=== PATIENT | female | born 1940 | race Caucasian/White ===

== ENCOUNTER 2016-11-28 09:32 | Inpatient (IN) | payer MEDICARE ==
[2016-11-28] MEDS ORDERED: IPRATROPIUM/ALBUTEROL 0.5-2.5 MG/3 ML AMPUL NEB ONE ×3 (09:53→09:54)
[2016-11-28] MEDS ORDERED: METHYLPREDNISOLONE INJ 125 MG/2 ML SDV IV ONE (09:53)
--- NOTE | 2016-11-28 09:55 | ER Document Report ---
ED Medical Screen (RME) - General Chief Complaint: Breathing Difficulty Stated Complaint: DIFFICULTY BREATHING Time Seen by Provider: 11/28/16 09:46 Mode of Arrival: Wheelchair Information source: Patient Notes: I have greeted and performed a rapid initial assessment of this patient. A comprehensive ED assessment and evaluation of the patient, analysis of test results and completion of the medical decision making process will be conducted by additional ED providers. 68-year-old female history of multiple PEs after a fall 5 months ago on Coumadin presents with complaints of shortness of breath. Patient found satting 89%, was placed on nasal cannula. She is not on oxygen at home. PHYSICAL EXAMINATION: GENERAL: Well-appearing, well-nourished and in mild respiratory acute distress. HEAD: Atraumatic, normocephalic. EYES: Pupils equal round extraocular movements intact, conjunctiva are normal. ENT: Nares patent NECK: Normal range of motion LUNGS: Mild respiratory distress Musculoskeletal: Normal range of motion NEUROLOGICAL: Normal speech, normal gait. PSYCH: Normal mood, normal affect. SKIN: Warm, Dry, normal turgor, no rashes or lesions noted. TRAVEL OUTSIDE OF THE [place] IN LAST 30 DAYS: No - Related Data Allergies/Adverse Reactions: No Known Allergies Allergy (Verified 11/28/16 09:43) Past Medical History - Past Medical History Cardiac Medical History: Reports: Hx Congestive Heart Failure, Hx Hypercholesterolemia, Hx Hypertension Pulmonary Medical History: Denies: Hx Tuberculosis Endocrine Medical History: Reports: Hx Diabetes Mellitus Type 2 Renal/ Medical History: Denies: Hx Peritoneal Dialysis GI Medical History: Reports: Hx Gastroesophageal Reflux Disease Musculoskeltal Medical History: Reports Hx Arthritis Psychiatric Medical History: Reports: Hx Depression Past Surgical History: Reports: Hx Cholecystectomy Physical Exam - Vital signs Vitals: Temp Pulse Resp BP Pulse Ox 98.6 F 66 24 H 173/69 H 89 L 11/28/16 09:47 11/28/16 09:47 11/28/16 09:47 11/28/16 09:47 11/28/16 09:47 Course - Vital Signs Vital signs: Temp Pulse Resp BP Pulse Ox 98.6 F 66 24 H 173/69 H 89 L 11/28/16 09:47 11/28/16 09:47 11/28/16 09:47 11/28/16 09:47 11/28/16 09:47
[2016-11-28 10:42] LABS: ABSOLUTE LYMPHOCYTES (AUTO) 1.3 10^3/uL (0.5-4.7); ABSOLUTE MONOCYTES (AUTO) 0.6 10^3/uL (0.1-1.4); ABSOLUTE NEUT (AUTO) 6.1 10^3/uL (1.7-8.2); BASOPHILS % (AUTO) 0.4 % (0-2); EOSINOPHILS % (AUTO) 0.6 % (0-6); HEMATOCRIT 39.9 % (36.0-47.0); HEMOGLOBIN 13.5 g/dL (12.0-15.5); HGB HCT DIFFERENCE 0.6; LYMPHOCYTES % (AUTO) 16.1 % (13-45); MEAN CORPUSCULAR HEMOGLOBIN 30.2 pg (27.0-33.4); MEAN CORPUSCULAR HGB CONC 33.9 g/dL (32.0-36.0); MEAN CORPUSCULAR VOLUME 89 fl (80-97); MONOCYTES % (AUTO) 6.9 % (3-13); RED BLOOD COUNT 4.47 10^6/uL (3.72-5.28); RED CELL DISTRIBUTION WIDTH 14.4 % (11.5-14.0)
[2016-11-28 10:50] LABS: PARTIAL THROMBOPLASTIN TIME 33.1 SEC (23.5-35.8)
[2016-11-28 11:04] LABS: ALANINE AMINOTRANSFERASE 42 U/L (9-52); ALKALINE PHOSPHATASE 56 U/L (38-126); ANION GAP 11 (5-19); ASPARTATE AMINO TRANSFERASE 32 U/L (14-36); BILIRUBIN,DIRECT 0.1 mg/dL (0.0-0.4); BILIRUBIN,TOTAL 1.2 mg/dL (0.2-1.3); BLOOD UREA NITROGEN 11 mg/dL (7-20); CALCIUM 10.7 mg/dL (8.4-10.2); CARBON DIOXIDE 26 mmol/L (22-30); CHLORIDE 104 mmol/L (98-107); CREATINE KINASE 52 U/L (30-135); CREATININE RESULT 0.77 mg/dL (0.52-1.25); GLUCOSE 101 mg/dL (75-110); MAGNESIUM 1.9 mg/dL (1.6-2.3); POTASSIUM 4.4 mmol/L (3.6-5.0); SODIUM 140.6 mmol/L (137-145); TOTAL PROTEIN 6.5 g/dL (6.3-8.2)
[2016-11-28 11:14] LABS: CREATINE KINASE MB 0.97 ng/mL (<4.55)
[2016-11-28 11:16] LABS: TROPONIN I < 0.012 ng/mL
[2016-11-28] MEDS ORDERED: CEFTRIAXONE 1 GM/D5W RTU 50 ML IV ONE (12:31)
[2016-11-28] MEDS ORDERED: AZITHROMYCIN INJ 500 MG VIAL IV ONE (12:51)
--- NOTE | 2016-11-28 12:51 | ER Document Report ---
ED General - General Chief Complaint: Breathing Difficulty Stated Complaint: DIFFICULTY BREATHING Time Seen by Provider: 11/28/16 09:46 Mode of Arrival: Wheelchair TRAVEL OUTSIDE OF THE [place] IN LAST 30 DAYS: No - HPI Patient complains to provider of: difficulty in breathing Notes: Patient coming in for difficulty in breathing. Patient has a history of multiple PEs in the past patient states cough and last few days nonproductive no fevers or chills no nausea no vomiting. Patient states a history of COPD however she is on bronchodilators and used to smoke patient states does not smoke at this time. Patient was seen in triage found to be hypoxic with SPO2 less than 90. Patient was brought back to the main ER given multiple breathing treatments. Upon my evaluation patient was to be comfortable and is on oxygen at this time 4 L. Patient does not have oxygen at home - Related Data Allergies/Adverse Reactions: No Known Allergies Allergy (Verified 11/28/16 09:43) Home Medications: Current Home Medications Bisoprolol Fumarate [Zebeta] 10 mg PO DAILY 11/28/16 [History] Sertraline HCl [Zoloft 50 mg Tablet] 50 mg PO DAILY 11/28/16 [History] Warfarin Sodium [Coumadin 1 mg Tablet] 1 mg PO QHS 11/28/16 [History] Warfarin Sodium [Coumadin 5 mg Tablet] 5 mg PO QHS 11/28/16 [History] Past Medical History - General Information source: Patient - Social History Smoking Status: Former Smoker Chew tobacco use (# tins/day): No Frequency of alcohol use: None Drug Abuse: None Family History: CAD, DM Patient has suicidal ideation: No Patient has homicidal ideation: No - Past Medical History Cardiac Medical History: Reports: Hx Congestive Heart Failure, Hx Hypercholesterolemia, Hx Hypertension Pulmonary Medical History: Denies: Hx Tuberculosis Endocrine Medical History: Reports: Hx Diabetes Mellitus Type 2 Renal/ Medical History: Denies: Hx Peritoneal Dialysis GI Medical History: Reports: Hx Gastroesophageal Reflux Disease Musculoskeltal Medical History: Reports Hx Arthritis Psychiatric Medical History: Reports: Hx Depression Past Surgical History: Reports: Hx Appendectomy, Hx Cholecystectomy, Hx Tonsillectomy - Immunizations Hx Pneumococcal Vaccination: 07/19/12 Review of Systems - Review of Systems Constitutional: No symptoms reported EENT: No symptoms reported Cardiovascular: No symptoms reported Respiratory: Short of breath, Wheezing Gastrointestinal: No symptoms reported Genitourinary: No symptoms reported Female Genitourinary: No symptoms reported Musculoskeletal: No symptoms reported Skin: No symptoms reported Hematologic/Lymphatic: No symptoms reported Neurological/Psychological: No symptoms reported -: Yes All other systems reviewed and negative Physical Exam - Vital signs Vitals: Temp Pulse Resp BP Pulse Ox 98.6 F 66 24 H 173/69 H 89 L 11/28/16 09:47 11/28/16 09:47 11/28/16 09:47 11/28/16 09:47 11/28/16 09:47 Interpretation: Hypoxic - General General appearance: Appears well, Alert - HEENT Head: Normocephalic, Atraumatic Eyes: Normal Pupils: PERRL - Respiratory Respiratory status: No respiratory distress Chest status: Nontender Breath sounds: Normal Chest palpation: Normal - Cardiovascular Rhythm: Regular Heart sounds: Normal auscultation Murmur: No - Abdominal Inspection: Normal Distension: No distension Bowel sounds: Normal Tenderness: Nontender Organomegaly: No organomegaly - Back Back: Normal, Nontender - Extremities General upper extremity: Normal inspection, Nontender, Normal color, Normal ROM , Normal temperature General lower extremity: Normal inspection, Nontender, Normal color, Normal ROM , Normal temperature, Normal weight bearing. No: Del's sign - Neurological Neuro grossly intact: Yes Cognition: Normal Orientation: AAOx4 Nathalie Coma Scale Eye Opening: Spontaneous Nathalie Coma Scale Verbal: Oriented Sherrill Coma Scale Motor: Obeys Commands Nathalie Coma Scale Total: 15 Speech: Normal Motor strength normal: LUE, RUE, LLE, RLE Sensory: Normal - Psychological Associated symptoms: Normal affect, Normal mood - Skin Skin Temperature: Warm Skin Moisture: Dry Skin Color: Normal Course - Re-evaluation Re-evalutation: 11/28/16 15:08 Patient CTA does not show any signs of PE however does shows signs of groundglass possible pneumonia. Patient still requires oxygen while lying in the bed with room air patient's SPO2 did go down to 86. Patient's case was referred to the hospitalist for further evaluation. - Vital Signs Vital signs: Temp Pulse Resp BP Pulse Ox 98.6 F 66 17 153/73 H 96 11/28/16 09:47 11/28/16 09:47 11/28/16 13:01 11/28/16 13:01 11/28/16 13:01 - Laboratory Result Diagrams: 11/28/16 10:13 11/28/16 10:13 Laboratory results interpreted by me: 11/28/16 11/28/16 11/28/16 10:13 10:13 10:13 RDW 14.4 H Plt Count 119 L PT 21.0 H Calcium 10.7 H Critical Care Note - Critical Care Note Total time excluding time spent on procedures (mins): 35 Comments: Multiple evaluations patient with hypoxia Discharge - Discharge Clinical Impression: subtherapeutic INR level, Hypoxia Pneumonia Qualifiers: Pneumonia type: due to unspecified organism Laterality: unspecified laterality Lung location: unspecified part of lung Qualified Code(s): J18.9 - Pneumonia, unspecified organism Condition: Good Disposition: ADMITTED INPATIENT Admitting Provider: Raymond Arreola Unit Admitted: Telemetry
[2016-11-28 12:59] LABS: VENOUS BLOOD BASE EXCESS 1.1 mmol/L; VENOUS BLOOD HCO3 28.1 mmol/L (20-32); VENOUS BLOOD PCO2 54.5 mmHg (35-63); VENOUS BLOOD PH 7.33 (7.30-7.42)
--- NOTE | 2016-11-28 13:18 | EKG REPORT ---
SEVERITY:- ABNORMAL ECG - SINUS RHYTHM FIRST DEGREE AV BLOCK : Confirmed by: Doron Connor 28-Nov-2016 13:18:00
[2016-11-28] MEDS ORDERED: LEVALBUTEROL HCL NEB 1.25 MG/3 ML AMPUL NEB PRN (15:29)
--- NOTE | 2016-11-28 16:03 | PDOC H&P ---
History of Present Illness Admission Date/PCP: 11/28/16 13:03 Patient complains of: Shortness of breath History of Present Illness: MICHAEL HALL is a 76 year old female, history of diabetes, hypertension, hypercholesterolemia, congestive heart failure diastolic dysfunction, and pulmonary embolism came to the emergency room because of increasing shortness of breath. For the past 2 weeks the patient has been having shortness of breath. The patient noted it more on exertion but eventually it will improve with rest. There is associated chest tightness and wheezing. There is minimal cough if any. The patient reports nasal congestion as well for the past week or so. There is no sore throat. No chills or fever. No purulent expectoration or drainage. There is no increasing lower extremity edema. The patient denies orthopnea but does have intermittent paroxysmal nocturnal dyspnea. Earlier today the patient tried to walk her dog by she started to develop significant shortness of breath therefore she decided to go to the hospital for evaluation. CT of the chest did not reveal pulmonary embolus and but did reveal groundglass opacities suggestive of heart failure or pneumonia. The patient was given intravenous antibiotic and steroid with nebulizers and was referred for admission. Past Medical History Past Medical History: Medication reconciliation pending verification from the patient's pharmacist. Cardiac Medical History: Reports: Congestive Heart Failure, Hyperlipidema, Hypertension Pulmonary Medical History: Denies: Tuberculosis Endocrine Medical History: Reports: Diabetes Mellitus Type 2 GI Medical History: Reports: Gastroesophageal Reflux Disease Musculoskeltal Medical History: Reports: Arthritis Psychiatric Medical History: Reports: Depression Past Surgical History Past Surgical History: Reports: Appendectomy, Cholecystectomy, Tonsillectomy Social History Information Source: Patient Smoking Status: Former Smoker - Patient only smoked for 2 years and quit 40 years ago Frequency of Alcohol Use: None Hx Recreational Drug Use: No Drugs: None Hx Prescription Drug Abuse: No Family History Family History: CAD, DM Parental Family History Reviewed: Yes Children Family History Reviewed: Yes Sibling(s) Family History Reviewed.: Yes Medication/Allergy Home Medications: Bisoprolol Fumarate [Zebeta] 10 mg PO DAILY 11/28/16 Sertraline HCl [Zoloft 50 mg Tablet] 50 mg PO DAILY 11/28/16 Warfarin Sodium [Coumadin 1 mg Tablet] 1 mg PO QHS 11/28/16 Warfarin Sodium [Coumadin 5 mg Tablet] 5 mg PO QHS 11/28/16 Allergies/Adverse Reactions: No Known Allergies Allergy (Verified 11/28/16 09:43) Review of Systems Constitutional: ABSENT: chills, fever(s), headache(s), night sweats, weight gain , weight loss Eyes: ABSENT: visual disturbances Ears: ABSENT: hearing changes Nose, Mouth, and Throat: ABSENT: mouth pain, sore throat Cardiovascular: PRESENT: chest pain, dyspnea on exertion. ABSENT: edema, orthropnea, palpitations Respiratory: PRESENT: cough - Occasional, dyspnea. ABSENT: hemoptysis Gastrointestinal: ABSENT: abdominal pain, constipation, diarrhea, hematemesis, hematochezia, nausea, vomiting Genitourinary: ABSENT: dysuria, hematuria Musculoskeletal: ABSENT: joint swelling Integumentary: ABSENT: rash, wounds Neurological: PRESENT: dizziness - Vocational, weakness - Generalized. ABSENT: abnormal gait, abnormal speech, confusion, focal weakness, syncope Psychiatric: ABSENT: anxiety, depression, homidical ideation, suicidal ideation Endocrine: ABSENT: cold intolerance, heat intolerance, polydipsia, polyuria Hematologic/Lymphatic: ABSENT: easy bleeding, easy bruising Physical Exam Vital Signs: Temp Pulse Resp BP Pulse Ox 98.6 F 66 30 H 139/59 H 91 L 11/28/16 09:47 11/28/16 09:47 11/28/16 15:01 11/28/16 15:01 11/28/16 15:01 General appearance: PRESENT: no acute distress, cooperative, morbidly obese Head exam: PRESENT: atraumatic, normocephalic Eye exam: PRESENT: conjunctiva pink, EOMI, PERRLA. ABSENT: scleral icterus Ear exam: PRESENT: normal external ear exam. ABSENT: drainage Mouth exam: PRESENT: moist, neck supple, tongue midline Throat exam: ABSENT: post pharyngeal erythema, tonsillar erythema, tonsillar exudate Neck exam: ABSENT: carotid bruit, JVD, lymphadenopathy, thyromegaly Respiratory exam: PRESENT: rhonchi - Occasional. ABSENT: rales, wheezes Cardiovascular exam: PRESENT: RRR. ABSENT: diastolic murmur, rubs, systolic murmur Pulses: PRESENT: normal dorsalis pedis pul Vascular exam: PRESENT: normal capillary refill GI/Abdominal exam: PRESENT: normal bowel sounds, soft. ABSENT: distended, guarding, mass, organolmegaly, rebound, tenderness Rectal exam: PRESENT: deferred Extremities exam: PRESENT: full ROM. ABSENT: calf tenderness, clubbing, pedal edema Neurological exam: PRESENT: alert, awake, oriented to person, oriented to place , oriented to time, oriented to situation, CN II-XII grossly intact. ABSENT: motor sensory deficit Psychiatric exam: PRESENT: appropriate affect, normal mood. ABSENT: homicidal ideation, suicidal ideation Skin exam: PRESENT: dry, intact, warm. ABSENT: cyanosis, rash Results Impressions: Chest/Abdomen CTA 11/28/16 09:54 IMPRESSION: No evidence for pulmonary embolic disease. Small bilateral pleural effusions are identified. There are scattered ground-glass opacities which could represent pulmonary edema or developing pneumonic infiltrates. Other findings as noted above Assessment & Plan - Diagnosis (1) Pneumonia Qualifiers: Pneumonia type: due to unspecified organism Laterality: unspecified laterality Lung location: unspecified part of lung Qualified Code(s): J18.9 - Pneumonia, unspecified organism Is this a current diagnosis for this admission?: Yes (2) Hypercalcemia Is this a current diagnosis for this admission?: Yes (3) Warfarin-induced coagulopathy Is this a current diagnosis for this admission?: Yes (4) Dyslipidemia Is this a current diagnosis for this admission?: Yes (5) HTN (hypertension) Qualifiers: Hypertension type: essential hypertension Qualified Code(s): I10 - Essential (primary) hypertension Is this a current diagnosis for this admission?: Yes (6) Morbid obesity with BMI of 40.0-44.9, adult Is this a current diagnosis for this admission?: Yes (7) GERD (gastroesophageal reflux disease) Qualifiers: Esophagitis presence: without esophagitis Qualified Code(s): K21.9 - Gastro-esophageal reflux disease without esophagitis Is this a current diagnosis for this admission?: Yes (8) Pulmonary embolism Qualifiers: Pulmonary embolism type: other Chronicity: chronic Acute cor pulmonale presence: without acute cor pulmonale Qualified Code(s): I27.82 - Chronic pulmonary embolism Is this a current diagnosis for this admission?: Yes (9) Chronic congestive heart failure with left ventricular diastolic dysfunction Is this a current diagnosis for this admission?: Yes (10) Depression Qualifiers: Depression Type: unspecified Qualified Code(s): F32.9 - Major depressive disorder, single episode, unspecified Is this a current diagnosis for this admission?: Yes (11) History of paroxysmal supraventricular tachycardia Is this a current diagnosis for this admission?: Yes - Time Time Spent: 50 to 70 Minutes - Inpatient Certification Based on my medical assessment, after consideration of the patient's comorbidities, presenting symptoms, or acuity I expect that the services needed warrant INPATIENT care.: Yes I certify that my determination is in accordance with my understanding of Medicare's requirements for reasonable and necessary INPATIENT services [42 CFR 412.3e].: Yes Medical Necessity: Significant Comorbidiites Make Outpatient Treatment Too Risky , Need For IV Fluids, Need for Nebulizer Therapy and Monitoring of Response, Need for IV Antibiotics Post Hospital Care: D/C Client Services Manager Documentation - Plan Summary Plan Summary: The patient will be admitted to telemetry. Blood culture and sputum culture will be done. We will begin broad-spectrum antibiotics to cover for community- acquired organism, nebulizers as needed for wheezing, antipyretic as needed for fever. I would gently hydrate the patient and monitor serum calcium. We will try to patient on Lasix C for symptoms would improve. I will increase the patient's warfarin and monitor PT/INR to a goal of 2-3. Supplemental oxygen will be given. Further testing depends on the initial evaluation as outlined above.
[2016-11-28] MEDS ORDERED: FUROSEMIDE INJ/PF 40 MG/4 ML SDV IV ONE (16:30)
[2016-11-28] MEDS: NORMAL SALINE 1000 ML 1,000 ML IV PRN (17:02)
[2016-11-28 17:34] LABS: CREATINE KINASE MB 1.02 ng/mL (<4.55)
[2016-11-28 17:38] LABS: TROPONIN I < 0.012 ng/mL
[2016-11-28] MEDS: WARFARIN SODIUM 7.5 MG TABLET PO SCH (22:32)
[2016-11-28] MEDS: ACETAMINOPHEN 325 MG TABLET PO PRN (23:37)
[2016-11-29 03:31] LABS: CREATINE KINASE MB 1.02 ng/mL (<4.55)
[2016-11-29 03:41] LABS: TROPONIN I < 0.012 ng/mL
[2016-11-29] MEDS: FUROSEMIDE INJ/PF 40 MG/4 ML SDV IV SCH ×2 (05:39→17:46)
[2016-11-29] MEDS: LANSOPRAZOLE 30 MG TAB.RAP.DR PO SCH (05:39)
[2016-11-29 06:38] LABS: ANION GAP 7 (5-19); BLOOD UREA NITROGEN 22 mg/dL (7-20); CALCIUM 9.9 mg/dL (8.4-10.2); CARBON DIOXIDE 26 mmol/L (22-30); CHLORIDE 104 mmol/L (98-107); CREATINE KINASE 43 U/L (30-135); CREATININE RESULT 0.72 mg/dL (0.52-1.25); GLUCOSE 128 mg/dL (75-110); POTASSIUM 4.6 mmol/L (3.6-5.0)
[2016-11-29 06:45] LABS: CREATINE KINASE MB 1.14 ng/mL (<4.55)
[2016-11-29 06:49] LABS: TROPONIN I < 0.012 ng/mL
[2016-11-29 08:35] LABS: APPEARANCE,URINE CLEAR; BILIRUBIN,URINE NEGATIVE (NEGATIVE); GLUCOSE, URINE NEGATIVE (NEGATIVE); KETONES,URINE NEGATIVE (NEGATIVE); LEUKOCYTE ESTERASE,URINE NEGATIVE (NEGATIVE); NITRITE,URINE NEGATIVE (NEGATIVE); PROTEIN,URINE NEGATIVE (NEGATIVE); URINE SPECIFIC GRAVITY 1.005; UROBILINOGEN,URINE NEGATIVE mg/dL (<2.0)
[2016-11-29] MEDS: NORMAL SALINE 1000 ML 1,000 ML IV PRN (09:10)
[2016-11-29] MEDS ORDERED: BISOPROLOL FUMARATE 10 MG PO SCH (10:00)
[2016-11-29] MEDS: SERTRALINE HCL 50 MG TABLET PO SCH (10:25)
[2016-11-29] MEDS: ATENOLOL 50 MG TABLET PO SCH (10:25)
[2016-11-29] MEDS: CEFTRIAXONE 1 GM/D5W RTU 50 ML IV SCH (10:26)
--- NOTE | 2016-11-29 10:53 | PDOC PROGRESS REPORT ---
Subjective Progress Note for:: 11/29/16 Subjective:: Patient significantly improved today . Denies chest pain, nausea or vomiting, nor diaphoresis. Able to sleep well. No paroxysmal nocturnal dyspnea. No diarrhea. Physical Exam Vital Signs: Temp Pulse Resp BP Pulse Ox 97.5 F 58 L 24 H 132/55 H 97 11/29/16 07:34 11/29/16 07:34 11/29/16 07:34 11/29/16 07:34 11/29/16 08:00 Pulse Oximeter Continuous Start: 11/28/16 15: 29 Freq: RTQ4 Status: Active Document 11/29/16 08:00 [facility] (Rec: 11/29/16 08:04 J [email or web address]) Pulse Oximetry Assessment Oxygen Saturation (92-100) 97 Oxygen Flow Rate (L/min) 3 Oxygen Delivery Method Nasal Cannula Equipment Usage Equipment in Use Continuous Pulse Oximeter 24 Hour Charge Charge Now Continuous SpO2 Machine # 3 Intake & Output 11/28/16 11/29/16 11/30/16 06:59 06:59 06:59 Intake Total 1770 Output Total 1100 Balance 670 Weight 113 kg General appearance: PRESENT: no acute distress, cooperative, obese Head exam: PRESENT: normocephalic Eye exam: PRESENT: conjunctiva pink, EOMI Mouth exam: PRESENT: moist, neck supple Neck exam: ABSENT: JVD Respiratory exam: PRESENT: clear to auscultation carmen - Anteriorly. ABSENT: rhonchi, wheezes Cardiovascular exam: PRESENT: irregular rhythm. ABSENT: gallop GI/Abdominal exam: PRESENT: normal bowel sounds, soft. ABSENT: distended - Obese Extremities exam: PRESENT: other - Trace lower extremity edema Neurological exam: PRESENT: alert, awake, oriented to situation Skin exam: PRESENT: dry, warm. ABSENT: cyanosis Results Laboratory Results: 11/29/16 05:39 11/29/16 11/29/16 05:39 08:01 Sodium 137.0 Potassium 4.6 Chloride 104 Carbon Dioxide 26 Anion Gap 7 BUN 22 H Creatinine 0.72 Est GFR ( Amer) > 60 Est GFR (Non-Af Amer) > 60 Glucose 128 H Calcium 9.9 Urine Color COLORLESS Urine Appearance CLEAR Urine pH 6.0 Ur Specific [place] 1.005 Urine Protein NEGATIVE Urine Glucose (UA) NEGATIVE Urine Ketones NEGATIVE Urine Blood SMALL H Urine Nitrite NEGATIVE Ur Leukocyte Esterase NEGATIVE Urine WBC (Auto) 1 Urine RBC (Auto) 0 11/28/16 11/28/16 11/28/16 16:50 16:50 23:29 Creatine Kinase 50 49 CK-MB (CK-2) 1.02 Troponin I < 0.012 11/28/16 11/29/16 11/29/16 23:29 05:39 05:39 Creatine Kinase 43 CK-MB (CK-2) 1.02 1.14 Troponin I < 0.012 < 0.012 Impressions: Chest X-Ray 11/28/16 00:00 IMPRESSION: CARDIOMEGALY. POSSIBLE FAINT ATELECTASIS IN THE LEFT LUNG BASE. Chest/Abdomen CTA 11/28/16 09:54 IMPRESSION: No evidence for pulmonary embolic disease. Small bilateral pleural effusions are identified. There are scattered ground-glass opacities which could represent pulmonary edema or developing pneumonic infiltrates. Other findings as noted above Assessment & Plan - Diagnosis (1) Pneumonia Qualifiers: Pneumonia type: due to unspecified organism Laterality: unspecified laterality Lung location: unspecified part of lung Qualified Code(s): J18.9 - Pneumonia, unspecified organism Is this a current diagnosis for this admission?: Yes (2) Hypercalcemia Is this a current diagnosis for this admission?: Yes (3) Warfarin-induced coagulopathy Is this a current diagnosis for this admission?: Yes (4) Dyslipidemia Is this a current diagnosis for this admission?: Yes (5) HTN (hypertension) Qualifiers: Hypertension type: essential hypertension Qualified Code(s): I10 - Essential (primary) hypertension Is this a current diagnosis for this admission?: Yes (6) Morbid obesity with BMI of 40.0-44.9, adult Is this a current diagnosis for this admission?: Yes (7) GERD (gastroesophageal reflux disease) Qualifiers: Esophagitis presence: without esophagitis Qualified Code(s): K21.9 - Gastro-esophageal reflux disease without esophagitis Is this a current diagnosis for this admission?: Yes (8) Pulmonary embolism Qualifiers: Pulmonary embolism type: other Chronicity: chronic Acute cor pulmonale presence: without acute cor pulmonale Qualified Code(s): I27.82 - Chronic pulmonary embolism Is this a current diagnosis for this admission?: Yes (9) Chronic congestive heart failure with left ventricular diastolic dysfunction Is this a current diagnosis for this admission?: Yes (10) Depression Qualifiers: Depression Type: unspecified Qualified Code(s): F32.9 - Major depressive disorder, single episode, unspecified Is this a current diagnosis for this admission?: Yes (11) History of paroxysmal supraventricular tachycardia Is this a current diagnosis for this admission?: Yes - Time Time Spent with patient: 25-34 minutes - Plan Summary Plan Summary: Patient likely has some element of heart failure. Continue diuretics. Continue current antibiotics for now. Check PT/INR. Recent echocardiogram within the last 6 months, showed a normal ejection fraction. We will continue the current dose of warfarin today and adjust according to PT/INR result today.
[2016-11-29] MEDS: AZITHROMYCIN 500 MG in DEXTROSE 5%-WATER 250 ML IV SCH (12:02)
[2016-11-29 18:55] LABS: PROTHROMBIN TIME 26.6 SEC (11.4-15.4)
[2016-11-29] MEDS: WARFARIN SODIUM 7.5 MG TABLET PO SCH (21:21)
[2016-11-29] MEDS: ACETAMINOPHEN 325 MG TABLET PO PRN (21:21)
[2016-11-30] MEDS: LANSOPRAZOLE 30 MG TAB.RAP.DR PO SCH (05:52)
[2016-11-30] MEDS: FUROSEMIDE INJ/PF 40 MG/4 ML SDV IV SCH ×2 (05:53→11:44)
[2016-11-30] MEDS ORDERED: NORMAL SALINE 1000 ML 1,000 ML IV PRN (09:14)
[2016-11-30] MEDS ORDERED: WARFARIN SODIUM 7.5 MG TABLET PO SCH (09:15)
--- NOTE | 2016-11-30 09:18 | PDOC PROGRESS REPORT ---
Subjective Progress Note for:: 11/30/16 Subjective:: Patient continues to improve in terms of breathing. No temperature spikes, nor diarrhea. No reported respiratory distress. Patient unable to rest well last night, but not having any PND nor orthopnea. No chest pain. Patient reports having to get up frequently to urinate. Physical Exam Vital Signs: Temp Pulse Resp BP Pulse Ox 97.9 F 65 16 144/67 H 93 11/30/16 08:00 11/30/16 08:00 11/30/16 08:00 11/30/16 08:00 11/30/16 08:00 Pulse Oximeter Continuous Start: 11/28/16 15: 29 Freq: RTQ4 Status: Active Document 11/30/16 04:00 LRO (Rec: 11/30/16 06:00 LRO [id number]) Pulse Oximetry Assessment Oxygen Saturation (92-100) 94 Oxygen Flow Rate (L/min) 2 Oxygen Delivery Method Nasal Cannula Equipment Usage Equipment in Use Continuous SpO2 Machine # 3 Intake & Output 11/29/16 11/30/16 12/01/16 06:59 06:59 06:59 Intake Total 1770 1960 Output Total 1100 1350 Balance 670 610 Weight 113 kg 113.1 kg General appearance: PRESENT: no acute distress, obese Head exam: PRESENT: normocephalic Eye exam: PRESENT: EOMI Mouth exam: PRESENT: moist, neck supple Neck exam: ABSENT: JVD Respiratory exam: PRESENT: clear to auscultation carmen - Anteriorly, rhonchi - Occasional posterior Cardiovascular exam: PRESENT: RRR. ABSENT: gallop GI/Abdominal exam: PRESENT: soft. ABSENT: distended - Obese, tenderness Extremities exam: PRESENT: other - Trace pretibial edema Neurological exam: PRESENT: alert, awake, oriented to situation Skin exam: PRESENT: dry, warm. ABSENT: cyanosis Results Laboratory Results: 11/29/16 05:39 11/28/16 11/28/16 11/28/16 16:50 16:50 23:29 Creatine Kinase 50 49 CK-MB (CK-2) 1.02 Troponin I < 0.012 11/28/16 11/29/16 11/29/16 23:29 05:39 05:39 Creatine Kinase 43 CK-MB (CK-2) 1.02 1.14 Troponin I < 0.012 < 0.012 Impressions: Chest X-Ray 11/28/16 00:00 IMPRESSION: CARDIOMEGALY. POSSIBLE FAINT ATELECTASIS IN THE LEFT LUNG BASE. Chest/Abdomen CTA 11/28/16 09:54 IMPRESSION: No evidence for pulmonary embolic disease. Small bilateral pleural effusions are identified. There are scattered ground-glass opacities which could represent pulmonary edema or developing pneumonic infiltrates. Other findings as noted above Assessment & Plan - Diagnosis (1) Pneumonia Qualifiers: Pneumonia type: due to unspecified organism Laterality: unspecified laterality Lung location: unspecified part of lung Qualified Code(s): J18.9 - Pneumonia, unspecified organism Is this a current diagnosis for this admission?: Yes (2) Hypercalcemia Is this a current diagnosis for this admission?: Yes (3) Warfarin-induced coagulopathy Is this a current diagnosis for this admission?: Yes (4) Dyslipidemia Is this a current diagnosis for this admission?: Yes (5) HTN (hypertension) Qualifiers: Hypertension type: essential hypertension Qualified Code(s): I10 - Essential (primary) hypertension Is this a current diagnosis for this admission?: Yes (6) Morbid obesity with BMI of 40.0-44.9, adult Is this a current diagnosis for this admission?: Yes (7) GERD (gastroesophageal reflux disease) Qualifiers: Esophagitis presence: without esophagitis Qualified Code(s): K21.9 - Gastro-esophageal reflux disease without esophagitis Is this a current diagnosis for this admission?: Yes (8) Pulmonary embolism Qualifiers: Pulmonary embolism type: other Chronicity: chronic Acute cor pulmonale presence: without acute cor pulmonale Qualified Code(s): I27.82 - Chronic pulmonary embolism Is this a current diagnosis for this admission?: Yes (9) Chronic congestive heart failure with left ventricular diastolic dysfunction Is this a current diagnosis for this admission?: Yes (10) Depression Qualifiers: Depression Type: unspecified Qualified Code(s): F32.9 - Major depressive disorder, single episode, unspecified Is this a current diagnosis for this admission?: Yes (11) History of paroxysmal supraventricular tachycardia Is this a current diagnosis for this admission?: Yes - Time Time Spent with patient: 25-34 minutes - Plan Summary Plan Summary: We will decrease the Lasix. Continue IV antibiotics. Decrease intravenous fluid to KVO. Begin physical therapy. Out of bed. Continue supportive care. Recheck PT/INR. Decrease warfarin to 5 mg at bedtime.
[2016-11-30] MEDS: AZITHROMYCIN 500 MG in DEXTROSE 5%-WATER 250 ML IV SCH (10:22)
[2016-11-30] MEDS: CEFTRIAXONE 1 GM/D5W RTU 50 ML IV SCH (10:22)
[2016-11-30] MEDS: SERTRALINE HCL 50 MG TABLET PO SCH (10:23)
[2016-11-30] MEDS: ATENOLOL 50 MG TABLET PO SCH (10:26)
[2016-11-30 10:44] LABS: PROTHROMBIN TIME 24.9 SEC (11.4-15.4)
[2016-11-30] MEDS: WARFARIN SODIUM 5 MG TABLET PO SCH (21:51)
[2016-12-01 04:39] LABS: PROTHROMBIN TIME 25.6 SEC (11.4-15.4)
[2016-12-01] MEDS: LANSOPRAZOLE 30 MG TAB.RAP.DR PO SCH (06:17)
[2016-12-01] MEDS: CEFTRIAXONE 1 GM/D5W RTU 50 ML IV SCH (09:22)
[2016-12-01] MEDS: FUROSEMIDE INJ/PF 40 MG/4 ML SDV IV SCH (09:22)
[2016-12-01] MEDS: SERTRALINE HCL 50 MG TABLET PO SCH (09:23)
[2016-12-01] MEDS: AZITHROMYCIN 250 MG TABLET PO SCH (09:23)
[2016-12-01] MEDS: ATENOLOL 50 MG TABLET PO SCH (09:27)
--- NOTE | 2016-12-01 11:22 | PDOC PROGRESS REPORT ---
Subjective Progress Note for:: 12/01/16 Subjective:: Patient reports still have to go to the bathroom frequently due to diuretics. Staff reports bradycardia. No reported respiratory distress, temperature spikes , diarrhea. Patient denies any chest pain, abdominal pain, nausea or vomiting. Physical Exam Vital Signs: Temp Pulse Resp BP Pulse Ox 98.0 F 64 12 139/63 H 94 12/01/16 07:33 12/01/16 10:00 12/01/16 10:00 12/01/16 07:33 12/01/16 10:00 Pulse Oximeter Continuous Start: 11/28/16 15: 29 Freq: RTQ4 Status: Active Document 12/01/16 10:00 [facility] [place]Rec: 12/01/16 10:02 [facility] [id number] Pulse Oximetry Assessment Oxygen Saturation (92-100) 94 Oxygen Flow Rate (L/min) 3 Oxygen Delivery Method Nasal Cannula Equipment Usage Equipment in Use Continuous SpO2 Machine # N 3 Intake & Output 11/30/16 12/01/16 12/02/16 06:59 06:59 06:59 Intake Total 1960 2372 Output Total 1350 1800 Balance 610 572 Weight 113.1 kg 111.6 kg General appearance: PRESENT: no acute distress, cooperative, obese Head exam: PRESENT: normocephalic Eye exam: PRESENT: EOMI Mouth exam: PRESENT: moist, neck supple Neck exam: ABSENT: JVD Respiratory exam: PRESENT: clear to auscultation carmen - Anteriorly bilateral. ABSENT: rhonchi, wheezes Cardiovascular exam: PRESENT: RRR. ABSENT: gallop GI/Abdominal exam: PRESENT: soft. ABSENT: distended - Obese, tenderness Extremities exam: PRESENT: other - Trace pretibial edema Neurological exam: PRESENT: alert, awake, oriented to situation Skin exam: PRESENT: dry, warm. ABSENT: cyanosis Results Laboratory Results: 11/29/16 05:39 12/01/16 08:17 Stool Occult Blood NEGATIVE 11/28/16 11/28/16 11/28/16 16:50 16:50 23:29 Creatine Kinase 50 49 CK-MB (CK-2) 1.02 Troponin I < 0.012 11/28/16 11/29/16 11/29/16 23:29 05:39 05:39 Creatine Kinase 43 CK-MB (CK-2) 1.02 1.14 Troponin I < 0.012 < 0.012 Impressions: Chest X-Ray 11/28/16 00:00 IMPRESSION: CARDIOMEGALY. POSSIBLE FAINT ATELECTASIS IN THE LEFT LUNG BASE. Chest/Abdomen CTA 11/28/16 09:54 IMPRESSION: No evidence for pulmonary embolic disease. Small bilateral pleural effusions are identified. There are scattered ground-glass opacities which could represent pulmonary edema or developing pneumonic infiltrates. Other findings as noted above Assessment & Plan - Diagnosis (1) Pneumonia Qualifiers: Pneumonia type: due to unspecified organism Laterality: unspecified laterality Lung location: unspecified part of lung Qualified Code(s): J18.9 - Pneumonia, unspecified organism Is this a current diagnosis for this admission?: Yes (2) Hypercalcemia Is this a current diagnosis for this admission?: Yes (3) Warfarin-induced coagulopathy Is this a current diagnosis for this admission?: Yes (4) Dyslipidemia Is this a current diagnosis for this admission?: Yes (5) HTN (hypertension) Qualifiers: Hypertension type: essential hypertension Qualified Code(s): I10 - Essential (primary) hypertension Is this a current diagnosis for this admission?: Yes (6) Morbid obesity with BMI of 40.0-44.9, adult Is this a current diagnosis for this admission?: Yes (7) GERD (gastroesophageal reflux disease) Qualifiers: Esophagitis presence: without esophagitis Qualified Code(s): K21.9 - Gastro-esophageal reflux disease without esophagitis Is this a current diagnosis for this admission?: Yes (8) Pulmonary embolism Qualifiers: Pulmonary embolism type: other Chronicity: chronic Acute cor pulmonale presence: without acute cor pulmonale Qualified Code(s): I27.82 - Chronic pulmonary embolism Is this a current diagnosis for this admission?: Yes (9) Chronic congestive heart failure with left ventricular diastolic dysfunction Is this a current diagnosis for this admission?: Yes (10) Depression Qualifiers: Depression Type: unspecified Qualified Code(s): F32.9 - Major depressive disorder, single episode, unspecified Is this a current diagnosis for this admission?: Yes (11) History of paroxysmal supraventricular tachycardia Is this a current diagnosis for this admission?: Yes - Time Time Spent with patient: 25-34 minutes - Plan Summary Plan Summary: Out of bed. Physical therapy. Decrease atenolol dose. Monitor for further increasing bradycardia. Discontinue oxygen, see how she does. Continue current antibiotics for now. Discontinue diuretics intravenously. Recheck PT/ INR in the morning. Continue supportive care
[2016-12-01] MEDS ORDERED: ATENOLOL 50 MG TABLET PO ONE (12:00)
[2016-12-01] MEDS: WARFARIN SODIUM 5 MG TABLET PO SCH (21:09)
[2016-12-02] MEDS: CEFTRIAXONE 1 GM/D5W RTU 50 ML IV SCH (10:00)
[2016-12-02] MEDS: SERTRALINE HCL 50 MG TABLET PO SCH (10:00)
[2016-12-02] MEDS: AZITHROMYCIN 250 MG TABLET PO SCH (10:00)
[2016-12-02] MEDS: ATENOLOL 50 MG TABLET PO SCH (10:00)
[2016-12-02] MEDS: WARFARIN SODIUM 5 MG TABLET PO SCH (22:44)
[2016-12-03 05:09] LABS: PROTHROMBIN TIME 22.3 SEC (11.4-15.4)
[2016-12-03] MEDS: LANSOPRAZOLE 30 MG TAB.RAP.DR PO SCH (06:00)
--- NOTE | 2016-12-03 08:42 | PROGRESS NOTE E ---
Progress Note NAME: MICHAEL HALL : 1940 AGE: 76Y DATE: 12/02/2016 ROOM: 405 SUBJECTIVE: The patient continues to feel better. Denies any fever, nausea, vomiting, chest pain. No wheezing. No PND or orthopnea. Able to rest well. OBJECTIVE: VITAL SIGNS: Blood pressure 135/60, pulse 60, Respirations: 22, temperature 97.6 degrees Fahrenheit. GENERAL: The patient is awake. She is not in acute distress. She is morbidly obese. NECK: There is no jugular venous distention. RESPIRATORY: Lung sounds are clear to auscultation bilateral. HEART: Regular with no gallops. ABDOMEN: Obese, soft, nontender, nondistended. Bowel sounds were present. LOWER EXTREMITIES: Trace pretibial edema. SKIN: Mucosa and nail beds with no cyanosis. LABORATORY: INR is 2.12. ASSESSMENT: 1. PNEUMONIA. 2. HYPERCALCEMIA RESOLVED. 3. WARFARIN INDUCED COAGULOPATHY. 4. [id number] CONGESTIVE HEART FAILURE, DIASTOLIC DYSFUNCTION. 5. DYSLIPIDEMIA. 6. ESSENTIAL HYPERTENSION. 7. MORBID OBESITY. 8. GASTROESOPHAGEAL REFLUX DISEASE. 9. PULMONARY EMBOLISM. 10. DEPRESSION. 11. HISTORY OF PAROXYSMAL SUPRAVENTRICULAR TACHYCARDIA. PLAN: The patient's O2 saturation went down to 87 when oxygen was taken off. This was at rest. We will, therefore, arrange the patient for home oxygen for her congestive heart failure as well as pulmonary embolism. In the meantime, we will continue warfarin and recheck PT/INR. Continue physical therapy. Continue current antibiotics. We will plan discharge in the morning with home health. DICTATING PHYSICIAN: HIPOLITO ALVARENGA M.D. [id number] PHY#: [id number] ID: [id number] JOB#: [id number] ACCT: [id number] cc: >
[2016-12-03] MEDS: CEFTRIAXONE 1 GM/D5W RTU 50 ML IV SCH (09:10)
[2016-12-03] MEDS: ATENOLOL 50 MG TABLET PO SCH (09:10)
[2016-12-03] MEDS: AZITHROMYCIN 250 MG TABLET PO SCH (09:10)
[2016-12-03] MEDS: SERTRALINE HCL 50 MG TABLET PO SCH (09:10)
[2016-12-03 11:55] LABS: PROTHROMBIN TIME 24.6 SEC (11.4-15.4)
[2016-12-03 16:53] VITALS: BP 132/66
--- NOTE | 2016-12-03 18:00 | PDOC DISCHARGE SUMMARY ---
General - Admit/Disc Date/PCP Admission Date/Primary Care Provider: 11/28/16 15:29 Discharge Date: 12/03/16 - Discharge Diagnosis (1) Pneumonia Is this a current diagnosis for this admission?: Yes (2) Hypercalcemia Is this a current diagnosis for this admission?: Yes (3) Warfarin-induced coagulopathy Is this a current diagnosis for this admission?: Yes (4) Dyslipidemia Is this a current diagnosis for this admission?: Yes (5) HTN (hypertension) Is this a current diagnosis for this admission?: Yes (6) Morbid obesity with BMI of 40.0-44.9, adult Is this a current diagnosis for this admission?: Yes (7) GERD (gastroesophageal reflux disease) Is this a current diagnosis for this admission?: Yes (8) Pulmonary embolism Is this a current diagnosis for this admission?: Yes (9) Chronic congestive heart failure with left ventricular diastolic dysfunction Is this a current diagnosis for this admission?: Yes (10) Depression Is this a current diagnosis for this admission?: Yes (11) History of paroxysmal supraventricular tachycardia Is this a current diagnosis for this admission?: Yes - Additional Information Resuscitation Status: Full Code Discharge Diet: Cardiac - low fat, low salt Discharge Activity: Activity As Tolerated, Balance Activity w/Rest, Slowly Increase Activity Home Medications: Bisoprolol Fumarate [Zebeta 10 mg Tablet] 10 mg PO DAILY 11/28/16 Sertraline HCl [Zoloft 50 mg Tablet] 50 mg PO DAILY 11/28/16 Warfarin Sodium [Coumadin 1 mg Tablet] 1 mg PO QHS 11/28/16 Warfarin Sodium [Coumadin 5 mg Tablet] 5 mg PO QHS 11/28/16 Amox Tr/Potassium Clavulanate [Augmentin 875-125 mg Tablet] 1 tab PO BID #14 tablet 12/03/16 Additional Information: PT/INR check in 3 to 5 days w/ primnary MD. History of Present Illness Patient complains of: Shortness of breath. History of Present Illness: MICHAEL HALL is a 76 year old female, history of diabetes, hypertension, hypercholesterolemia, congestive heart failure diastolic dysfunction, and pulmonary embolism came to the emergency room because of increasing shortness of breath. For the past 2 weeks the patient has been having shortness of breath. The patient noted it more on exertion but eventually it will improve with rest. There is associated chest tightness and wheezing. There is minimal cough if any. The patient reports nasal congestion as well for the past week or so. There is no sore throat. No chills or fever. No purulent expectoration or drainage. There is no increasing lower extremity edema. The patient denies orthopnea but does have intermittent paroxysmal nocturnal dyspnea. Earlier today the patient tried to walk her dog by she started to develop significant shortness of breath therefore she decided to go to the hospital for evaluation. CT of the chest did not reveal pulmonary embolus and but did reveal groundglass opacities suggestive of heart failure or pneumonia. The patient was given intravenous antibiotic and steroid with nebulizers and was referred for admission. Hospital Course Hospital Course: Pt was admitted to telemetry. She was started on broad spectrum antibiotics, suplemental oxygen. CE were obtained and were negative. Patient however has element of fluid overload therefore intravenous lasix was given and patient significantly improved. SOB got better and patient able to ambulate w/o getting significant SOB. Physical Therapy was instituted. IV lasix d/c eventually after significant symptomatic improvement. Oxygen tried to be weaned but O2 saturation drops below 90. Arrangement was made for home O2 and physical therapy. In terms of her PE, warfarin was titrated and INR monitored till therapeautic. Her initial Chest CT was neg for new PE but did show the infiltrates that suggest pneumonia. The rest of hospital stay was unremarkable. Physical Exam Vital Signs: Temp Pulse Resp BP Pulse Ox 97.7 F 61 16 132/66 H 94 12/03/16 16:47 12/03/16 16:47 12/03/16 16:47 12/03/16 16:47 12/03/16 16:47 Pulse Oximeter Continuous Start: 11/28/16 15: 29 Freq: RTQ4 Status: Active Document 12/03/16 16:00 [facility] (Rec[facility] 12/03/16 16[facility]03 [id number] Pulse Oximetry Assessment Oxygen Saturation (92-100) 94 Oxygen Flow Rate (L/min) 2.0 Oxygen Delivery Method Nasal Cannula Fraction of Inspired Oxygen (FIO2) 28 Equipment Usage Equipment in Use Continuous SpO2 Machine # [id number] Intake & Output 12/02/16 12/03/16 12/04/16 06:59 06:59 06:59 Intake Total 1280 360 784 Output Total 450 20666 Balance 830 -15410 784 Weight 110.1 kg General appearance: PRESENT: no acute distress, cooperative, obese Head exam: PRESENT: normocephalic Eye exam: PRESENT: EOMI Mouth exam: PRESENT: moist, neck supple Neck exam: ABSENT: JVD Respiratory exam: PRESENT: clear to auscultation carmen - anteriorly B/L. ABSENT: rhonchi, wheezes Cardiovascular exam: PRESENT: RRR. ABSENT: gallop GI/Abdominal exam: PRESENT: soft. ABSENT: distended, tenderness Extremities exam: PRESENT: other - trace LE edema Neurological exam: PRESENT: alert, awake, oriented to person, oriented to place , oriented to time, oriented to situation Skin exam: PRESENT: dry, warm. ABSENT: cyanosis Results Laboratory Results: 11/29/16 05:39 11/28/16 11/28/16 11/28/16 16:50 16:50 23:29 Creatine Kinase 50 49 CK-MB (CK-2) 1.02 Troponin I < 0.012 11/28/16 11/29/16 11/29/16 23:29 05:39 05:39 Creatine Kinase 43 CK-MB (CK-2) 1.02 1.14 Troponin I < 0.012 < 0.012 Impressions: Chest X-Ray 11/28/16 00:00 IMPRESSION: CARDIOMEGALY. POSSIBLE FAINT ATELECTASIS IN THE LEFT LUNG BASE. Chest/Abdomen CTA 11/28/16 09:54 IMPRESSION: No evidence for pulmonary embolic disease. Small bilateral pleural effusions are identified. There are scattered ground-glass opacities which could represent pulmonary edema or developing pneumonic infiltrates. Other findings as noted above Qualifiers PATEINT BEING DISCHARGED WITH ANY OF THE FOLLOWING DIAGNOSIS?: No Plan Discharge Plan: Follow up w/ primary MD in 1 week. Time Spent: Less than 30 Minutes
== END 2016-12-03 18:33 | disposition home health service (06) | DRG 193 ==
LOC: ER 09:32 → UNDOADMIN 13:03 → EH 13:03 → 4N 16:05 → EH 16:05
PROC: 3E0F73Z Introduction of Anti-inflammatory into Respiratory Tract, Via Natural or Artificial Opening (ICD-10-PCS; principal; 2016-11-28)
DX: J18.9 Pneumonia, unspecified organism (principal); I50.33 Acute on chronic diastolic (congestive) heart failure; Z68.41 Body mass index [BMI] 40.0-44.9, adult; I47.1 Supraventricular tachycardia; I27.82 Chronic pulmonary embolism; E83.52 Hypercalcemia; E78.5 Hyperlipidemia, unspecified; K21.9 Gastro-esophageal reflux disease without esophagitis; E66.01 Morbid (severe) obesity due to excess calories; I11.0 Hypertensive heart disease with heart failure; F32.9 Major depressive disorder, single episode, unspecified; E11.9 Type 2 diabetes mellitus without complications; E78.00 Pure hypercholesterolemia, unspecified; M19.90 Unspecified osteoarthritis, unspecified site; Z79.01 Long term (current) use of anticoagulants; Z79.899 Other long term (current) drug therapy; Z99.81 Dependence on supplemental oxygen; Z90.49 Acquired absence of other specified parts of digestive tract; Z87.891 Personal history of nicotine dependence; Z83.3 Family history of diabetes mellitus; Z82.49 Family history of ischemic heart disease and other diseases of the circulatory system
CPT/HCPCS: 36415; 71010; 71275; 80048; 80053; 81001; 82272; 82550; 82553; 82803; 83735; 83880; 84484; 85025; 85610; 85730; 87040; 93005; 93010; 94640; 94762; 96374; 96375; 99291; G8978-GP; G8979-GP; G8980-GP; J0456; J0696; J1940; J2930; J3490; J7030; J7060; J7620

== ENCOUNTER 2017-09-03 13:16 | Emergency (ER) | payer MEDICARE ==
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
[2017-09-03] MEDS ORDERED: HYDROCODONE/ACETAMINOPHEN 5-325 MG TABLET PO ONE (15:09)
[2017-09-03 15:46] LABS: ABSOLUTE BASOPHILS # (AUTO) 0.1 10^3/uL (0.0-0.2); ABSOLUTE EOSINOPHILS # (AUTO) 0.1 10^3/uL (0.0-0.6); ABSOLUTE LYMPHOCYTES (AUTO) 2.2 10^3/uL (0.5-4.7); ABSOLUTE MONOCYTES (AUTO) 0.6 10^3/uL (0.1-1.4); ABSOLUTE NEUT (AUTO) 3.7 10^3/uL (1.7-8.2); BASOPHILS % (AUTO) 0.9 % (0-2); EOSINOPHILS % (AUTO) 1.1 % (0-6); HEMATOCRIT 41.7 % (36.0-47.0); HEMOGLOBIN 14.3 g/dL (12.0-15.5); LYMPHOCYTES % (AUTO) 33.3 % (13-45); MEAN CORPUSCULAR HEMOGLOBIN 30.9 pg (27.0-33.4); MEAN CORPUSCULAR HGB CONC 34.4 g/dL (32.0-36.0); MEAN CORPUSCULAR VOLUME 90 fl (80-97); MONOCYTES % (AUTO) 9.5 % (3-13); PLATELET COUNT 133 10^3/uL (150-450); RED BLOOD COUNT 4.64 10^6/uL (3.72-5.28); RED CELL DISTRIBUTION WIDTH 13.3 % (11.5-14.0); SEGMENTED NEUTROPHILS % (AUTO) 55.2 % (42-78); TOTAL CELLS COUNTED % (AUTO) 100 %; WHITE BLOOD COUNT 6.7 10^3/uL (4.0-10.5)
[2017-09-03 16:01] LABS: ALANINE AMINOTRANSFERASE 37 U/L (9-52); ALKALINE PHOSPHATASE 49 U/L (38-126); ANION GAP 7 (5-19); ASPARTATE AMINO TRANSFERASE 30 U/L (14-36); BILIRUBIN,DIRECT 0.3 mg/dL (0.0-0.4); BILIRUBIN,TOTAL 0.6 mg/dL (0.2-1.3); BLOOD UREA NITROGEN 16 mg/dL (7-20); CALCIUM 10.8 mg/dL (8.4-10.2); CARBON DIOXIDE 29 mmol/L (22-30); CHLORIDE 103 mmol/L (98-107); GLUCOSE 80 mg/dL (75-110); POTASSIUM 4.5 mmol/L (3.6-5.0); SODIUM 138.7 mmol/L (137-145); TOTAL PROTEIN 6.4 g/dL (6.3-8.2)
[2017-09-03 17:07] VITALS: BP 158/88
--- NOTE | 2017-09-04 12:26 | XCELERA REPORT ---
[address] [address] Lower Extremity Venous Evaluation Name: MICHAEL HALL Age: 77 yrs Gender: Female : 1940 Patient Status: Preadmit Patient Location: ER Study Date: 09/03/2017 02:48 PM Procedure: Color flow and duplex imaging bilaterally of the veins of the lower extremities as well as the Common Femoral veins. Reason For Study: PAIN, SWELLING, H/O DVT/PE Ordering Physician: RADHA WILL Performed By: María Weiss Right Sided Venous Evaluation Normal vessel filling wall to wall, compression and augmentation as well as Colour flow down to the infrageniculate veins. Left Sided Venous Evaluation Normal vessel filling wall to wall, compression and augmentation as well as Colour flow down to the infrageniculate veins. Interpretation Summary No duplex evidence of DVT or obstruction in the bilateral lower extremities. : RADHA WILL [place]
== END 2017-09-03 17:29 | disposition home or self-care (01) ==
LOC: ER 13:16
DX: M25.561 Pain in right knee (principal); M25.562 Pain in left knee; G89.29 Other chronic pain; M79.89 Other specified soft tissue disorders; Z86.718 Personal history of other venous thrombosis and embolism; Z86.711 Personal history of pulmonary embolism; Z79.01 Long term (current) use of anticoagulants; I50.9 Heart failure, unspecified; E78.00 Pure hypercholesterolemia, unspecified; I10 Essential (primary) hypertension
CPT/HCPCS: 99284; 36415; 85025; 80053; 93970 ×2; A9270

== ENCOUNTER 2018-05-19 13:39 | Inpatient (IN) | payer MEDICARE, MEDICAID ==
[2018-05-19] MEDS ORDERED: ASPIRIN 81 MG TABLET, CHEWABLE PO ONE (14:54)
--- NOTE | 2018-05-19 14:58 | ER Document Report ---
ED Medical Screen (RME) - General Chief Complaint: Chest Pain Stated Complaint: CHEST PAIN Time Seen by Provider: 05/19/18 14:48 Mode of Arrival: Ambulatory Information source: Patient Notes: 77-year-old female presents to the emergency department with complaints of chest pain and shortness of breath that have been constant for the last month. Patient was seen at [facility] in the emergency department 1 month ago and told to follow-up with her clam shucking machine tender, Dr. Sevilla, for further evaluation. Patient states that she has not followed up with her clam shucking machine tender. Patient describes her chest pain as a dull aching sensation on the left side. She denies any radiation of the pain. She denies any alleviating or exacerbating factors. She states that she does have a history of congestive heart failure. She states that she is on Eliquis. I have greeted and performed a rapid initial assessment of this patient. A comprehensive ED assessment and evaluation of the patient, analysis of test results and completion of the medical decision making process will be conducted by additional ED providers. PHYSICAL EXAMINATION: GENERAL: Well-appearing, well-nourished and in no acute distress. HEAD: Atraumatic, normocephalic. EYES: Pupils equal round extraocular movements intact, conjunctiva are normal. ENT: Nares patent NECK: Normal range of motion LUNGS: No respiratory distress Musculoskeletal: Normal range of motion NEUROLOGICAL: Normal speech, normal gait. PSYCH: Normal mood, normal affect. SKIN: Warm, Dry, normal turgor, no rashes or lesions noted. TRAVEL OUTSIDE OF THE [place] IN LAST 30 DAYS: No - Related Data Allergies/Adverse Reactions: No Known Allergies Allergy (Verified 11/28/16 09:43) Past Medical History - Past Medical History Cardiac Medical History: Reports: Hx Congestive Heart Failure, Hx DVT, Hx Hypercholesterolemia, Hx Hypertension, Hx Pulmonary Embolism Pulmonary Medical History: Denies: Hx Tuberculosis Endocrine Medical History: Reports: Hx Diabetes Mellitus Type 2 Renal/ Medical History: Denies: Hx Peritoneal Dialysis GI Medical History: Reports: Hx Gastroesophageal Reflux Disease Musculoskeltal Medical History: Reports Hx Arthritis Psychiatric Medical History: Reports: Hx Depression Past Surgical History: Reports: Hx Appendectomy, Hx Cardiac Catheterization - RIGHT, ABLATION, Hx Cholecystectomy, Hx Tonsillectomy Physical Exam - Vital signs Vitals: Temp Pulse Resp BP Pulse Ox 98.3 F 60 24 H 131/80 H 93 05/19/18 14:02 05/19/18 14:02 05/19/18 14:02 05/19/18 14:02 05/19/18 14:02 Course - Vital Signs Vital signs: Temp Pulse Resp BP Pulse Ox 98.3 F 60 24 H 131/80 H 93 05/19/18 14:02 05/19/18 14:02 05/19/18 14:02 05/19/18 14:02 05/19/18 14:02
[2018-05-19 15:50] LABS: ABSOLUTE LYMPHOCYTES (AUTO) 1.6 10^3/uL (0.5-4.7); ABSOLUTE MONOCYTES (AUTO) 0.5 10^3/uL (0.1-1.4); ABSOLUTE NEUT (AUTO) 4.7 10^3/uL (1.7-8.2); BASOPHILS % (AUTO) 0.7 % (0-2); EOSINOPHILS % (AUTO) 0.6 % (0-6); HEMATOCRIT 40.2 % (36.0-47.0); LYMPHOCYTES % (AUTO) 23.8 % (13-45); MEAN CORPUSCULAR HEMOGLOBIN 31.8 pg (27.0-33.4); MEAN CORPUSCULAR HGB CONC 34.9 g/dL (32.0-36.0); MEAN CORPUSCULAR VOLUME 91 fl (80-97); MONOCYTES % (AUTO) 7.2 % (3-13); PLATELET COUNT 131 10^3/uL (150-450); RED BLOOD COUNT 4.41 10^6/uL (3.72-5.28); RED CELL DISTRIBUTION WIDTH 13.8 % (11.5-14.0); SEGMENTED NEUTROPHILS % (AUTO) 67.7 % (42-78); TOTAL CELLS COUNTED % (AUTO) 100 %; WHITE BLOOD COUNT 6.9 10^3/uL (4.0-10.5)
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
[2018-05-19 16:07] LABS: ALANINE AMINOTRANSFERASE 33 U/L (9-52); ALBUMIN 4.2 g/dL (3.5-5.0); ALKALINE PHOSPHATASE 51 U/L (38-126); ANION GAP 12 (5-19); ASPARTATE AMINO TRANSFERASE 34 U/L (14-36); BILIRUBIN,DIRECT 0.2 mg/dL (0.0-0.4); BILIRUBIN,TOTAL 1.3 mg/dL (0.2-1.3); BLOOD UREA NITROGEN 16 mg/dL (7-20); CALCIUM 10.2 mg/dL (8.4-10.2); CARBON DIOXIDE 26 mmol/L (22-30); CHLORIDE 103 mmol/L (98-107); GLUCOSE 86 mg/dL (75-110); POTASSIUM 4.8 mmol/L (3.6-5.0); SODIUM 140.9 mmol/L (137-145); TOTAL PROTEIN 6.7 g/dL (6.3-8.2)
[2018-05-19 16:20] LABS: NT PRO BNP 1120 pg/mL (<450); TROPONIN I < 0.012 ng/mL
[2018-05-19 16:33] LABS: INTERNATIONAL RATION (INR) 1.06; PROTHROMBIN TIME 14.3 SEC (11.4-15.4)
--- NOTE | 2018-05-19 16:45 | RADIOLOGY REPORT (SQ) ---
EXAM DESCRIPTION: CHEST SINGLE VIEW COMPLETED DATE/TIME: 05/19/2018 4:35 pm REASON FOR STUDY: shortness of breath COMPARISON: 05/26/2016 EXAM PARAMETERS: NUMBER OF VIEWS: One view. TECHNIQUE: Single frontal radiographic view of the chest acquired. RADIATION DOSE: NA LIMITATIONS: None. FINDINGS: LUNGS AND PLEURA: No opacities, masses or pneumothorax. No pleural effusion. MEDIASTINUM AND HILAR STRUCTURES: Normal for technique. HEART AND VASCULAR STRUCTURES: Normal for technique. BONES: No acute findings. HARDWARE: None in the chest. OTHER: No other significant finding. IMPRESSION: NO ACUTE RADIOGRAPHIC FINDING IN THE CHEST. TECHNICAL DOCUMENTATION: JOB ID: [id number]- All Rights Reserved Reading location - IP/workstation name: [email or web address]
[2018-05-19] MEDS ORDERED: FUROSEMIDE INJ/PF 20 MG/2 ML SDV IV ONE (17:25)
--- NOTE | 2018-05-19 18:22 | RADIOLOGY REPORT (SQ) ---
EXAM DESCRIPTION: CTA CHEST COMPLETED DATE/TIME: 05/19/2018 5:09 pm REASON FOR STUDY: Shortness of breath with associated chest pain COMPARISON: Same day chest radiograph and earlier TECHNIQUE: CT scan of the chest performed using helical scanning technique with dynamic intravenous contrast injection. Images reviewed with lung, soft tissue and bone windows. Reconstructed coronal and sagittal MPR images reviewed. Additional 3 dimensional post-processing performed to develop Maximal Intensity Projection images (DE P). All images stored on PACS. All CT scanners at this facility use dose modulation, iterative reconstruction, and/or weight based d osing when appropriate to reduce radiation dose to as low as reasonably achievable (ALARA). [facility]: Dose Right [facility]: CareDose [facility]: Dose Right [facility]: Teradose 4D [facility]: [email or web address] CONTRAST TYPE AND DOSE: contrast/concentration: Isovue 350.00 mg/ml; Total Contrast Delivered: 82.0 ml; Total Saline Delivered: 110.0 ml 83 mL IV of Omnipaque 350- low osmolar. Contrast bolus optimized for the pulmonary arteries. Not diagnostic for the aorta. RENAL FUNCTION: BUN 16 creatinine 0.8 RADIATION DOSE: CT Rad equipment meets quality standard of care and radiation dose reduction techniq ues were employed. CTDIvol: 23.2 - 29.7 mGy. DLP: 1039 mGy-cm. . LIMITATIONS: None. FINDINGS: LUNGS AND PLEURA: Trace right pleural effusion. Small bibasilar atelectasis. Mosaic atte nuation through both lungs. No focal consolidation, left pleural effusion, or pneumothorax. AORTA AND GREAT VESSELS: No aneurysm. Contrast bolus not optimized for the aorta. Mild calcified pl aque. HEART: No pericardial effusion. Mild coronary artery calcifications. Mild unchanged cardiomegaly. PULMONARY ARTERIES: No emboli visualized in the main pulmonary arteries or the segmental branches. HILAR AND MEDIASTINAL STRUCTURES: No identified masses or abnormal nodes. HARDWARE: None in the chest. UPPER ABDOMEN: Small hiatal hernia. Otherwise, no significant findings. Limited exam. THYROID AND OTHER SOFT TISSUES: No masses. No adenopathy. BONES: Degenerative disc disease of the lower thoracic spine. 3D MIPS: Confirm above findings. OTHER: No other significant finding. IMPRESSION: 1. No pulmonary embolus. 2. Unchanged mild cardiomegaly with a trace right pleural effusion. 3. Mosaic attenuation of both lungs which may be secondary to pulmonary edema or obstructive airways disease. COMMENT: Quality ID # [id number]: Final reports with documentation of one or more dose reduction techniques (e.g., Automated exposure control, adjustment of the mA and/or kV according to patient size, use of iterative reconstruction technique) TECHNICAL DOCUMENTATION: JOB ID: [id number] [employer]- All Rights Reserved Reading location - IP/workstation name: [email or web address]
--- NOTE | 2018-05-19 20:45 | EKG REPORT ---
SEVERITY:- ABNORMAL ECG - ATRIAL FIBRILLATION LEFT AXIS DEVIATION : Confirmed by: Kimberley Stallings MD 19-May-2018 20:45:28
[2018-05-19 20:58] LABS: APPEARANCE,URINE CLEAR; BILIRUBIN,URINE NEGATIVE (NEGATIVE); COLOR,URINE COLORLESS; GLUCOSE, URINE NEGATIVE (NEGATIVE); KETONES,URINE NEGATIVE (NEGATIVE); LEUKOCYTE ESTERASE,URINE TRACE (NEGATIVE); NITRITE,URINE NEGATIVE (NEGATIVE); PROTEIN,URINE NEGATIVE (NEGATIVE); URINE SPECIFIC GRAVITY 1.011; UROBILINOGEN,URINE NEGATIVE mg/dL (<2.0)
[2018-05-20] MEDS ORDERED: PROMETHAZINE HCL 25 MG TABLET PO PRN (00:34)
[2018-05-20] MEDS ORDERED: MAG HYDROX/AL HYDROX/SIMETH SUSP 30 ML UDCUP PO PRN (00:34)
[2018-05-20] MEDS ORDERED: PROMETHAZINE HCL INJ 25 MG/1 ML VIAL IV PRN (00:34)
[2018-05-20 02:51] LABS: ABSOLUTE EOSINOPHILS # (AUTO) 0.1 10^3/uL (0.0-0.6); ABSOLUTE LYMPHOCYTES (AUTO) 1.8 10^3/uL (0.5-4.7); ABSOLUTE MONOCYTES (AUTO) 0.5 10^3/uL (0.1-1.4); ABSOLUTE NEUT (AUTO) 4.1 10^3/uL (1.7-8.2); BASOPHILS % (AUTO) 0.7 % (0-2); EOSINOPHILS % (AUTO) 0.8 % (0-6); HEMATOCRIT 39.3 % (36.0-47.0); HEMOGLOBIN 13.8 g/dL (12.0-15.5); LYMPHOCYTES % (AUTO) 27.1 % (13-45); MEAN CORPUSCULAR HEMOGLOBIN 31.9 pg (27.0-33.4); MEAN CORPUSCULAR HGB CONC 35.2 g/dL (32.0-36.0); MEAN CORPUSCULAR VOLUME 91 fl (80-97); MONOCYTES % (AUTO) 8.3 % (3-13); PLATELET COUNT 115 10^3/uL (150-450); RED BLOOD COUNT 4.34 10^6/uL (3.72-5.28); RED CELL DISTRIBUTION WIDTH 14.1 % (11.5-14.0); SEGMENTED NEUTROPHILS % (AUTO) 63.1 % (42-78); TOTAL CELLS COUNTED % (AUTO) 100 %; WHITE BLOOD COUNT 6.6 10^3/uL (4.0-10.5)
[2018-05-20] MEDS ORDERED: GLUCAGON,HUMAN RECOMB 1 MG INJ IM PRN (02:56)
[2018-05-20] MEDS ORDERED: DEXTROSE 40% GEL 15 GM TUBE PO PRN ×2 (02:56)
[2018-05-20] MEDS ORDERED: INSULIN LISPRO 100 UNIT/ML 3 ML VIAL SUBCUT PRN (02:56)
[2018-05-20] MEDS ORDERED: DEXTROSE 50%-WATER 25 GM/50 ML DISP.SYRIN IV PRN ×2 (02:56)
[2018-05-20 03:04] LABS: ANION GAP 8 (5-19); BLOOD UREA NITROGEN 18 mg/dL (7-20); CALCIUM 9.9 mg/dL (8.4-10.2); CARBON DIOXIDE 30 mmol/L (22-30); CHLORIDE 104 mmol/L (98-107); GLUCOSE 85 mg/dL (75-110); POTASSIUM 4.3 mmol/L (3.6-5.0); SODIUM 141.9 mmol/L (137-145)
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
[2018-05-20] MEDS ORDERED: ACETAMINOPHEN 325 MG TABLET PO PRN (09:14)
[2018-05-20] MEDS ORDERED: BISOPROLOL FUMARATE 10 MG PO SCH (10:00)
[2018-05-20] MEDS: FUROSEMIDE INJ/PF 40 MG/4 ML SDV IV SCH ×2 (10:40→21:47)
[2018-05-20] MEDS: SERTRALINE HCL 50 MG TABLET PO SCH (10:41)
[2018-05-20] MEDS: APIXABAN 2.5 MG TABLET PO SCH ×2 (10:41→17:15)
[2018-05-20] MEDS: ATENOLOL 50 MG TABLET PO SCH (10:42)
--- NOTE | 2018-05-20 11:11 | PROGRESS NOTE E ---
Progress Note NAME: MICHAEL HALL : 1940 AGE: 77Y DATE: 05/20/2018 ROOM: 435 SUBJECTIVE: The patient is lying in bed. She states that she feels a little better today in comparison to when she came in overnight. Still admits to being very tight in her chest, short of breath. The patient herself denies any nausea, vomiting, diarrhea. No dizziness or chest pain. The patient has been afebrile. She does admit to significant anxiety, difficulty sleeping, and so forth, and the patient does not voice any other concerns at this time. REVIEW OF SYSTEMS: Rest of review of systems negative. MEDICATIONS: Medications have been reviewed. OBJECTIVE: GENERAL: The patient is a 77-year-old female who is awake, alert, and oriented to person, place, time, and situation. She is verbal, conversational, does not appear to be in acute distress. VITAL SIGNS: Temperature is 97.4, pulse 78, respirations 15, blood pressure 120/81, oxygen saturation 99% on 2 L nasal cannula. SKIN: Warm and dry. No rash. Not diaphoretic. HEENT: Pupils equal, round, and reactive to light and accommodation. Conjunctiva is pink. No evidence of JVP. CARDIOVASCULAR SYSTEM: Heart is irregular, but no rub. CHEST: Diminished, symmetrical with bilateral basilar crackles. ABDOMEN: Soft, nontender. EXTREMITIES: No clubbing, cyanosis, but +1 bilateral lower extremity pitting edema. DIAGNOSTICS: Lab values are as follows: Hematology obtained on 05/20/2018: WBCs are 6.6, hemoglobin is 13.8, hematocrit is 39.3, platelet count is 115,000. Chemistry obtained on 05/20/2018: Sodium is 141, potassium 3.3, chloride is 104, carbon dioxide 30, BUN 18, creatinine is 0.89, glucose 85, calcium is 9.9, magnesium is 2.0. Troponin is 0.012. IMPRESSION AND PLAN: 1. ACUTE ON CHRONIC DIASTOLIC CONGESTIVE HEART FAILURE. Will continue to diurese the patient and cardiac enzymes have been unremarkable. Will follow. 2. BRADYCARDIA. The patient was asymptomatic for this. Overall, does appear improved with a heart rate of 78. Will resume the patient's home beta pavel. Will follow. 3. CHRONIC ATRIAL FIBRILLATION. Will continue the patient's Eliquis. 4. HISTORY OF PE. Again, will continue Eliquis. CTA was unremarkable. 5. CHRONIC HYPOXEMIC RESPIRATORY FAILURE. The patient did not have O2 at home and had several days of ever increasing dyspnea. Will continue O2 supplementation. 6. HYPERTENSION. Blood pressures are in excellent range. DISPOSITION: The patient is a FULL CODE. Pending patient's symptomatology and diagnostic findings, will re-evaluate in the a.m. Time spent on this followup including assessment, plan, physical examination, patient education, review of records is 35 minutes. DICTATING PHYSICIAN: TYESHA DALAL NP [id number] PHY#: [id number] ID: [id number] JOB#: [id number] ACCT: [id number] cc: >
[2018-05-20] MEDS: AMITRIPTYLINE HCL 25 MG TABLET PO SCH (21:47)
[2018-05-21 06:42] LABS: ANION GAP 10 (5-19); BLOOD UREA NITROGEN 17 mg/dL (7-20); CARBON DIOXIDE 30 mmol/L (22-30); CHLORIDE 102 mmol/L (98-107); GLUCOSE 89 mg/dL (75-110); POTASSIUM 4.6 mmol/L (3.6-5.0); SODIUM 142.3 mmol/L (137-145)
[2018-05-21] MEDS: FUROSEMIDE INJ/PF 40 MG/4 ML SDV IV SCH ×2 (10:57→22:02)
[2018-05-21] MEDS: SERTRALINE HCL 50 MG TABLET PO SCH (10:57)
[2018-05-21] MEDS: APIXABAN 2.5 MG TABLET PO SCH ×2 (10:57→18:10)
[2018-05-21] MEDS: ATENOLOL 50 MG TABLET PO SCH (11:05)
[2018-05-21] MEDS ORDERED: NEBIVOLOL HCL 5 MG TABLET PO SCH (18:00)
[2018-05-21] MEDS: NEBIVOLOL HCL 2.5 MG TABLET PO SCH (18:12)
--- NOTE | 2018-05-21 19:01 | PROGRESS NOTE E ---
Progress Note NAME: MICHAEL HLAL : 1940 AGE: 77Y DATE: 05/21/2018 ROOM: 435 SUBJECTIVE: The patient is currently out of bed at the bedside chair. She states she feels much better today but still gets quite dyspneic. Still has some issues with conversational dyspnea. The patient denies any nausea, vomiting, diarrhea. No dizziness or chest pain. No fevers, chills. The patient has been afebrile. Blood pressure has been in a good range and patient does not voice any other concerns at this time. REVIEW OF SYSTEMS: Rest of review of systems negative. MEDICATIONS: Medications have been reviewed. OBJECTIVE: GENERAL: The patient is a 77-year-old female who is awake, alert, and oriented to person, place, time, and situation. She is verbal, conversational, does not appear to be in acute distress. VITAL SIGNS: Temperature is 97.4, pulse 52, respirations 20, blood pressure 126/63, oxygen saturation 97% on 2 L nasal cannula. SKIN: Warm and dry. No rash. Not diaphoretic. HEENT: Pupils equal, round, and reactive to light and accommodation. Conjunctiva is pink. Cannot appreciate any JVP. CARDIOVASCULAR SYSTEM: Heart is irregularly irregular, no rub. CHEST: Symmetrical, unlabored. Bilateral basilar crackles. ABDOMEN: Soft, nontender, nondistended. BACK: No CVA tenderness, sacral edema. EXTREMITIES: No clubbing, cyanosis, with trace lower extremity edema. DIAGNOSTICS: Lab values are as follows: Hematology obtained on 05/20/2018: WBCs are 6.6, hemoglobin is 13.8, hematocrit is 39.3, platelet count is 115,000. Chemistry obtained on 05/21/2018: Sodium is 142, potassium 4.6, chloride is 102, carbon dioxide 30, BUN 17, creatinine is 0.75, glucose 890, calcium is 10, magnesium is 2.1. IMPRESSION AND PLAN: 1. ACUTE ON CHRONIC DIASTOLIC CONGESTIVE HEART FAILURE. The patient is responding very well to diureses. Will continue this. Follow. 2. BRADYCARDIA. The patient was asymptomatic for this. Have transition the patient's beta pavel to Bystolic given her COPD and will overall reduce dosage due to documented bradycardia. 3. CHRONIC ATRIAL FIBRILLATION. Will continue the Eliquis. 4. HISTORY OF PE. Will continue Eliquis. CTA was unremarkable. 5. CHRONIC HYPOXEMIC RESPIRATORY FAILURE. The patient did not have an O2 supply at home and had several days of increasing dyspnea. Continue to monitor. 6. HYPERTENSION. Blood pressures are in good range. DISPOSITION: The patient is a FULL CODE. Pending patient's symptomatology and diagnostic findings, will re-evaluate in the a.m. Time spent on this followup including assessment, plan, physical examination, patient education, review of records is 25 minutes. DICTATING PHYSICIAN: TYESHA DALAL NP [id number] PHY#: [id number] ID: [id number] JOB#: [id number] ACCT: [id number] cc: >
[2018-05-21] MEDS ORDERED: METOPROLOL TARTRATE 25 MG TABLET PO SCH (22:00)
[2018-05-21] MEDS: AMITRIPTYLINE HCL 25 MG TABLET PO SCH (22:02)
[2018-05-22 06:41] LABS: HEMATOCRIT 43.6 % (36.0-47.0); HEMOGLOBIN 15.4 g/dL (12.0-15.5); MEAN CORPUSCULAR HEMOGLOBIN 32.1 pg (27.0-33.4); MEAN CORPUSCULAR HGB CONC 35.3 g/dL (32.0-36.0); MEAN CORPUSCULAR VOLUME 91 fl (80-97); PLATELET COUNT 118 10^3/uL (150-450); RED CELL DISTRIBUTION WIDTH 13.7 % (11.5-14.0); WHITE BLOOD COUNT 6.6 10^3/uL (4.0-10.5)
[2018-05-22 07:03] LABS: ANION GAP 12 (5-19); BLOOD UREA NITROGEN 21 mg/dL (7-20); CALCIUM 10.1 mg/dL (8.4-10.2); CARBON DIOXIDE 30 mmol/L (22-30); CHLORIDE 98 mmol/L (98-107); GLUCOSE 98 mg/dL (75-110); POTASSIUM 4.2 mmol/L (3.6-5.0)
[2018-05-22] MEDS: SERTRALINE HCL 50 MG TABLET PO SCH (09:58)
[2018-05-22] MEDS: APIXABAN 2.5 MG TABLET PO SCH ×2 (09:58→17:18)
[2018-05-22] MEDS: NEBIVOLOL HCL 2.5 MG TABLET PO SCH ×2 (09:58→17:18)
[2018-05-22] MEDS: FUROSEMIDE INJ/PF 40 MG/4 ML SDV IV SCH (09:58)
[2018-05-22] MEDS ORDERED: LOSARTAN POTASSIUM 25 MG TABLET PO ONE ×3 (15:00→21:00)
[2018-05-22] MEDS: CARBAMIDE PEROXIDE 6.5% OTIC SOLN 15 ML AU SCH (15:03)
[2018-05-22] MEDS ORDERED: HYDROCORTISONE 1% OINTMENT 28.35 GM TP PRN (15:55)
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
[2018-05-22] MEDS ORDERED: LOSARTAN POTASSIUM 25 MG TABLET ONE (20:51)
[2018-05-22] MEDS: AMITRIPTYLINE HCL 25 MG TABLET PO SCH (21:04)
[2018-05-22] MEDS ORDERED: LOSARTAN POTASSIUM 25 MG TABLET PO SCH (22:00)
[2018-05-23 06:32] LABS: HEMATOCRIT 44.8 % (36.0-47.0); MEAN CORPUSCULAR HEMOGLOBIN 32.1 pg (27.0-33.4); MEAN CORPUSCULAR HGB CONC 35.7 g/dL (32.0-36.0); MEAN CORPUSCULAR VOLUME 90 fl (80-97); PLATELET COUNT 129 10^3/uL (150-450); RED BLOOD COUNT 4.98 10^6/uL (3.72-5.28); RED CELL DISTRIBUTION WIDTH 13.8 % (11.5-14.0); WHITE BLOOD COUNT 6.5 10^3/uL (4.0-10.5)
[2018-05-23 06:51] LABS: ANION GAP 13 (5-19); BLOOD UREA NITROGEN 22 mg/dL (7-20); CALCIUM 10.4 mg/dL (8.4-10.2); CARBON DIOXIDE 29 mmol/L (22-30); CHLORIDE 98 mmol/L (98-107); GLUCOSE 100 mg/dL (75-110); POTASSIUM 4.5 mmol/L (3.6-5.0); SODIUM 139.6 mmol/L (137-145)
[2018-05-23] MEDS: SERTRALINE HCL 50 MG TABLET PO SCH (09:17)
[2018-05-23] MEDS: FUROSEMIDE 40 MG TABLET PO SCH (09:18)
[2018-05-23] MEDS: APIXABAN 2.5 MG TABLET PO SCH ×2 (09:18→19:51)
[2018-05-23] MEDS: LOSARTAN POTASSIUM 25 MG TABLET PO SCH ×2 (09:18→21:14)
[2018-05-23] MEDS: NEBIVOLOL HCL 2.5 MG TABLET PO SCH ×2 (09:18→19:51)
[2018-05-23] MEDS: CARBAMIDE PEROXIDE 6.5% OTIC SOLN 15 ML AU SCH ×2 (09:19→19:52)
--- NOTE | 2018-05-23 10:09 | PDOC PROGRESS REPORT ---
Subjective Progress Note for:: 05/23/18 Subjective:: Feels like she is slowly improving. Shortness of breath better, no chest pain or palpitations. Patient now agreeable to going to [facility]. No fever or chills, no nausea or vomiting. Reason For Visit: HEART FAILURE Physical Exam Vital Signs: Temp Pulse Resp BP Pulse Ox 97.3 F 63 20 124/66 97 05/23/18 07:31 05/23/18 07:31 05/23/18 07:31 05/23/18 07:31 05/23/18 07:31 Intake & Output 05/22/18 05/23/18 05/24/18 06:59 06:59 06:59 Intake Total 1824 Balance 1824 Weight 111.4 kg GEN: NAD, well-developed, well-nourished CV: RRR, NL S1S2 LUNGS: Few basilar crackles bilaterally, good air movement ABDOMEN Soft, NT, +BS EXTERMITIES: 1+ edema, no c/c NEURO: Alert, oriented x3, generalized weakness, but no acute weakness Results Laboratory Results: 05/23/18 05:51 05/23/18 05:51 05/23/18 05/23/18 05:51 05:51 WBC 6.5 RBC 4.98 Hgb 16.0 H Hct 44.8 MCV 90 MCH 32.1 MCHC 35.7 RDW 13.8 Plt Count 129 L Sodium 139.6 Potassium 4.5 Chloride 98 Carbon Dioxide 29 Anion Gap 13 BUN 22 H Creatinine 0.76 Est GFR ( Amer) > 60 Est GFR (Non-Af Amer) > 60 Glucose 100 Calcium 10.4 H Magnesium 2.1 05/20/18 05/20/18 05/20/18 02:44 08:50 15:10 Troponin I 0.014 < 0.012 < 0.012 Impressions: Chest X-Ray 05/19/18 14:55 IMPRESSION: NO ACUTE RADIOGRAPHIC FINDING IN THE CHEST. Chest/Abdomen CTA 05/19/18 16:43 IMPRESSION: 1. No pulmonary embolus. 2. Unchanged mild cardiomegaly with a trace right pleural effusion. 3. Mosaic attenuation of both lungs which may be secondary to pulmonary edema or obstructive airways disease. Assessment & Plan - Diagnosis (1) Acute on chronic diastolic CHF (congestive heart failure) Is this a current diagnosis for this admission?: Yes (2) Chronic hypoxemic respiratory failure Is this a current diagnosis for this admission?: Yes (3) Bradycardia Is this a current diagnosis for this admission?: Yes (4) HTN (hypertension) Qualifiers: Hypertension type: essential hypertension Qualified Code(s): I10 - Essential (primary) hypertension Is this a current diagnosis for this admission?: Yes (5) Morbid obesity with BMI of 40.0-44.9, adult Is this a current diagnosis for this admission?: Yes - Plan Summary Plan Summary: Patient has been changed to Lasix orally, 40 mg p.o. daily. Will continue. Bradycardia has improved with heart rate in the 60s. Will continue management. Patient now agreeable to to go to prison facility with rehab. Care management working on this.
[2018-05-23] MEDS: AMITRIPTYLINE HCL 25 MG TABLET PO SCH (21:14)
[2018-05-24] MEDS: NEBIVOLOL HCL 2.5 MG TABLET PO SCH (10:05)
[2018-05-24] MEDS: LOSARTAN POTASSIUM 25 MG TABLET PO SCH (10:05)
[2018-05-24] MEDS: APIXABAN 2.5 MG TABLET PO SCH (10:06)
[2018-05-24] MEDS: SERTRALINE HCL 50 MG TABLET PO SCH (10:06)
[2018-05-24] MEDS: FUROSEMIDE 40 MG TABLET PO SCH (10:06)
[2018-05-24] MEDS: CARBAMIDE PEROXIDE 6.5% OTIC SOLN 15 ML AU SCH (10:08)
--- NOTE | 2018-05-24 10:46 | PDOC DISCHARGE SUMMARY ---
General - Admit/Disc Date/PCP Admission Date/Primary Care Provider: 05/19/18 23:22 RADHA DURAN MD - Discharge Diagnosis (1) Acute on chronic diastolic CHF (congestive heart failure) Is this a current diagnosis for this admission?: Yes (2) Chronic hypoxemic respiratory failure Is this a current diagnosis for this admission?: Yes (3) Bradycardia Is this a current diagnosis for this admission?: Yes (4) HTN (hypertension) Is this a current diagnosis for this admission?: Yes (5) Morbid obesity with BMI of 40.0-44.9, adult Is this a current diagnosis for this admission?: Yes - Additional Information Discharge Diet: Cardiac, Diabetic Discharge Activity: Activity As Tolerated Prescriptions: Amitriptyline HCl [Elavil 25 mg Tablet] 25 mg PO QHS 30 Days #30 tablet Furosemide [Lasix 40 mg Tablet] 40 mg PO DAILY 30 Days #30 tablet Nebivolol HCl [Bystolic 2.5 mg Tablet] 2.5 mg PO BID 30 Days #30 tablet Home Medications: Bisoprolol Fumarate [Zebeta 10 mg Tablet] 10 mg PO DAILY 11/28/16 Sertraline HCl [Zoloft 50 mg Tablet] 50 mg PO DAILY 11/28/16 Apixaban [Eliquis 2.5 mg Tablet] 2.5 mg PO BID 05/20/18 Multivit-Min/Iron/Folic/Lutein [Centrum Silver Women Tablet] 1 each PO DAILY 09/05 Acetaminophen [Tylenol 325 mg Tablet] 650 mg PO Q4HP PRN tablet 05/24/18 Amitriptyline HCl [Elavil 25 mg Tablet] 25 mg PO QHS 30 Days #30 tablet Furosemide [Lasix 40 mg Tablet] 40 mg PO DAILY 30 Days #30 tablet 05/24/18 Nebivolol HCl [Bystolic 2.5 mg Tablet] 2.5 mg PO BID 30 Days #30 tablet History of Present Illness History of Present Illness: MICHAEL HALL is a 77 year old female Physical Exam Vital Signs: Temp Pulse Resp BP Pulse Ox 98.1 F 70 20 127/70 H 92 05/23/18 23:49 05/24/18 07:35 05/24/18 07:35 05/24/18 07:35 05/24/18 07:35 Intake & Output 05/23/18 05/24/18 05/25/18 06:59 06:59 06:59 Intake Total 1824 933 Balance 1824 933 Weight 111.4 kg 112 kg Results Laboratory Results: 05/23/18 05:51 05/23/18 05:51 05/20/18 05/20/18 05/20/18 02:44 08:50 15:10 Troponin I 0.014 < 0.012 < 0.012 Impressions: Chest X-Ray 05/19/18 14:55 IMPRESSION: NO ACUTE RADIOGRAPHIC FINDING IN THE CHEST. Chest/Abdomen CTA 05/19/18 16:43 IMPRESSION: 1. No pulmonary embolus. 2. Unchanged mild cardiomegaly with a trace right pleural effusion. 3. Mosaic attenuation of both lungs which may be secondary to pulmonary edema or obstructive airways disease.
[2018-05-24 12:13] VITALS: BP 99/66
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
== END 2018-05-24 14:25 | DRG 292 ==
LOC: ER 13:39 → EH 23:22 → OBSVTOIN 23:22 → 4S 05-20 00:39
PROVIDERS: ADMIT Internal Medicine; ATTEND Internal Medicine
DX: I11.0 Hypertensive heart disease with heart failure (principal); J96.11 Chronic respiratory failure with hypoxia; Z68.41 Body mass index [BMI] 40.0-44.9, adult; I50.33 Acute on chronic diastolic (congestive) heart failure; R00.1 Bradycardia, unspecified; I48.2 Chronic atrial fibrillation; E11.8 Type 2 diabetes mellitus with unspecified complications; K21.9 Gastro-esophageal reflux disease without esophagitis; E78.5 Hyperlipidemia, unspecified; E66.01 Morbid (severe) obesity due to excess calories; Z99.81 Dependence on supplemental oxygen; Z86.711 Personal history of pulmonary embolism; Z79.01 Long term (current) use of anticoagulants
CPT/HCPCS: 36415; 71045; 71275; 80048; 80053; 81001; 82962; 83735; 83880; 84484; 85025; 85027; 85610; 85730; 93005; 93010; 96374; 99291; G8978-GP; G8979-GP; J1940; J3490

== ENCOUNTER 2019-08-08 15:17 | Emergency (ER) | payer MEDICARE, MEDICAID ==
[2019-08-08] MEDS ORDERED: MORPHINE SULFATE 10 MG/ML INJ IV ONE (16:23)
[2019-08-08] MEDS ORDERED: ONDANSETRON 4 MG TAB.RAPDIS PO ONE (16:24)
[2019-08-08] MEDS ORDERED: AMPICILLIN SOD/SULBACTAM 3 GM VIAL IV ONE (16:25)
--- NOTE | 2019-08-08 17:09 | RADIOLOGY REPORT (SQ) ---
EXAM DESCRIPTION: HAND BILATERAL 3 VIEWS COMPLETED DATE/TIME: 08/08/2019 4:59 pm REASON FOR STUDY: dog bite/pain COMPARISON: None. EXAM PARAMETERS: NUMBER OF VIEWS: Three views. TECHNIQUE: AP, lateral and oblique radiographic images acquired of the right and left hand. LIMITATIONS: None. FINDINGS: MINERALIZATION: Normal. BONES: No acute fracture or dislocation. No worrisome bone lesions. JOINTS: Mild degenerative changes involving the interphalangeal joints of the fingers. Marked degene rative changes at the 1st carpometacarpal joint of both hands. SOFT TISSUES: No soft tissue swelling. No foreign body. OTHER: No other significant finding. IMPRESSION: CHRONIC DEGENERATIVE CHANGES. NO RADIOGRAPHIC EVIDENCE OF ACUTE INJURY. TECHNICAL DOCUMENTATION: JOB ID: [id number] [employer]- All Rights Reserved Reading location - IP/workstation name: [email or web address]
[2019-08-08] MEDS ORDERED: LIDOCAINE 1% INJ-PF (10 MG/ML) 30 ML SDV INJ ONE (17:20)
[2019-08-08] MEDS ORDERED: NEBIVOLOL HCL 2.5 MG TABLET PO ONE (17:28)
[2019-08-08] MEDS ORDERED: METOPROLOL TARTRATE PF/INJ 5 MG/5 ML SDV IV ONE (17:30)
[2019-08-08 18:32] VITALS: BP 171/82
--- NOTE | 2019-08-08 18:41 | ER Document Report ---
ED Animal Bite - General Chief Complaint: Animal Bite Stated Complaint: DOG BITE/BILATERAL HAND INJURY Time Seen by Provider: 08/08/19 16:06 Primary Care Provider: RADHA DURAN MD [Primary Care Provider] - Follow up as needed Information source: Patient TRAVEL OUTSIDE OF THE [place] IN LAST 30 DAYS: No - HPI Notes: Patient is brought in for dog bite to bilateral hands. She states this happened approximately 2 hours before arrival. She states that it was her own dog who bit her. She states the dog was in heat. She complains of severe pain to both hands worse on the right. It is worse with movement better with rest. Pain does radiate up the hand and is a burning sharp sensation. It is constant. She denies any other injuries. - Related Data Allergies/Adverse Reactions: No Known Allergies Allergy (Verified 11/28/16 09:43) Past Medical History - General Information source: Patient - Social History Smoking Status: Never Smoker Chew tobacco use (# tins/day): No Frequency of alcohol use: None Drug Abuse: None Family History: None, CAD, DM Patient has suicidal ideation: No Patient has homicidal ideation: No - Past Medical History Cardiac Medical History: Reports: Hx Congestive Heart Failure - Chronic diastolic, Hx DVT, Hx Hypercholesterolemia, Hx Hypertension, Hx Pulmonary Embolism Pulmonary Medical History: Denies: Hx Tuberculosis Endocrine Medical History: Reports: Hx Diabetes Mellitus Type 2 Renal/ Medical History: Denies: Hx Peritoneal Dialysis GI Medical History: Reports: Hx Gastroesophageal Reflux Disease Musculoskeletal Medical History: Reports Hx Arthritis Psychiatric Medical History: Reports: Hx Depression Past Surgical History: Reports: Hx Appendectomy, Hx Cardiac Catheterization - RIGHT, ABLATION, Hx Cholecystectomy, Hx Tonsillectomy - Immunizations Hx Pneumococcal Vaccination: 07/19/12 Review of Systems - Review of Systems Constitutional: denies: Chills, Fever Cardiovascular: denies: Chest pain, Palpitations Respiratory: denies: Cough, Short of breath -: Yes All other systems reviewed and negative Physical Exam - Vital signs Vitals: Resp Pulse Ox 23 H 90 L 08/08/19 15:55 08/08/19 15:55 Interpretation: Normal - General General appearance: Appears well, Alert - HEENT Head: Normocephalic, Atraumatic Eyes: Normal Pupils: PERRL - Respiratory Respiratory status: No respiratory distress Chest status: Nontender Breath sounds: Decreased air movement Chest palpation: Normal - Cardiovascular Rhythm: Regular Heart sounds: Normal auscultation Murmur: No - Abdominal Inspection: Normal Distension: No distension Bowel sounds: Normal Tenderness: Nontender Organomegaly: No organomegaly - Back Back: Normal, Nontender - Extremities General upper extremity: Other - Left hand has 2 puncture wounds to the lateral aspect of the hand and base of the thumb. This area is tender and swollen. Bleeding is controlled. Right hand has a large laceration please see laceration note. General lower extremity: Normal inspection, Nontender, Edema - 2+ bilateral, Normal color, Normal ROM, Normal temperature, Normal weight bearing. No: Del's sign - Neurological Neuro grossly intact: Yes Cognition: Normal Orientation: AAOx4 [place] Coma Scale Eye Opening: Spontaneous [place] Coma Scale Verbal: Oriented [place] Coma Scale Motor: Obeys Commands [place] Coma Scale Total: 15 Speech: Normal Motor strength normal: LUE, RUE, LLE, RLE Sensory: Normal - Psychological Associated symptoms: Normal affect, Normal mood - Skin Skin Temperature: Warm Skin Moisture: Dry Skin Color: Normal Course - Re-evaluation Re-evalutation: 08/08/19 18:40 Patient has 2 dog bite injuries this is her dog and can be observed. Patient's wounds were thoroughly cleansed and the laceration on the right was repaired with sutures. Patient was given 1 dose of antibiotics will be sent home with antibiotics. She will be also be sent home with pain medication. Patient is on chronic home O2 at 2-1/2 L. Here on 2-1/2 L patient's oxygen saturation was 97%. Patient denies any shortness of breath that is different from baseline. Patient's blood pressure here was elevated but she states she did not take her medication today. After 1 dose of beta-pavel patient's blood pressure is significantly decreased. - Vital Signs Vital signs: Temp Pulse Resp BP Pulse Ox 20 171/82 H 89 L 08/08/19 18:15 08/08/19 18:15 08/08/19 18:15 - Diagnostic Test Radiology reviewed: Image reviewed, Reports reviewed Discharge - Discharge Clinical Impression: Dog bite Qualifiers: Encounter type: initial encounter Qualified Code(s): W54.0XXA - Bitten by dog, initial encounter Laceration of right hand Qualifiers: Encounter type: initial encounter Foreign body presence: without foreign body Qualified Code(s): S61.411A - Laceration without foreign body of right hand, initial encounter Condition: Stable Disposition: HOME, SELF-CARE Instructions: Laceration Care ([facility]), Prophylactic Antibiotic ([facility]), Tetanus I mmunization Given ([facility]), Oral Narcotic Medication ([facility]), Soap Cleansing ([facility]), Animal Bites ([facility]) Additional Instructions: Please call your primary doctor first thing in the morning to arrange for a recheck in 2 to 3 days. Please start your antibiotics tomorrow with breakfast. Please take the least amount of pain medicine possible. Prescriptions: Amox Tr/Potassium Clavulanate [Augmentin 875-125 Tablet] 1 tab PO BID 10 Days tablet Hydrocodone/Acetaminophen [[place] 5-325 mg Tablet] 1 tab PO Q8 3 Days #9 tablet Referrals: RADHA DURAN MD [Primary Care Provider] - 08/10/19
== END 2019-08-08 19:26 | disposition home or self-care (01) ==
LOC: ER 15:17
PROC: 0HQFXZZ Repair Right Hand Skin, External Approach (ICD-10-PCS; principal; 2019-08-08)
DX: S61.411A Laceration without foreign body of right hand, initial encounter (principal); S61.412A Laceration without foreign body of left hand, initial encounter; M79.641 Pain in right hand; M79.642 Pain in left hand; W54.0XXA Bitten by dog, initial encounter; I50.9 Heart failure, unspecified; E11.9 Type 2 diabetes mellitus without complications
CPT/HCPCS: 99283; 96375; 96365; 73130; 12002; A9270; J0295; J3490 ×2; J2270; S0119

== ENCOUNTER 2020-04-16 14:24 | Emergency (ER) | payer MEDICARE, MEDICAID ==
[2020-04-16 14:56] LABS: ABSOLUTE BASOPHILS # (AUTO) 0.1 10^3/uL (0.0-0.2); ABSOLUTE EOSINOPHILS # (AUTO) 0.3 10^3/uL (0.0-0.6); ABSOLUTE LYMPHOCYTES (AUTO) 1.4 10^3/uL (0.5-4.7); ABSOLUTE MONOCYTES (AUTO) 0.7 10^3/uL (0.1-1.4); ABSOLUTE NEUT (AUTO) 5.6 10^3/uL (1.7-8.2); BASOPHILS % (AUTO) 0.8 % (0-2); EOSINOPHILS % (AUTO) 3.7 % (0-6); HEMATOCRIT 38.9 % (36.0-47.0); HEMOGLOBIN 13.8 g/dL (12.0-15.5); LYMPHOCYTES % (AUTO) 17.6 % (13-45); MEAN CORPUSCULAR HEMOGLOBIN 32.1 pg (27.0-33.4); MEAN CORPUSCULAR HGB CONC 35.4 g/dL (32.0-36.0); MEAN CORPUSCULAR VOLUME 91 fl (80-97); MONOCYTES % (AUTO) 8.1 % (3-13); PLATELET COUNT 167 10^3/uL (150-450); RED CELL DISTRIBUTION WIDTH 14.1 % (11.5-14.0); SEGMENTED NEUTROPHILS % (AUTO) 69.8 % (42-78); TOTAL CELLS COUNTED % (AUTO) 100 %; WHITE BLOOD COUNT 8.1 10^3/uL (4.0-10.5)
[2020-04-16 15:14] LABS: ALKALINE PHOSPHATASE 68 U/L (38-126); ANION GAP 7 (5-19); ASPARTATE AMINO TRANSFERASE 33 U/L (14-36); BILIRUBIN,DIRECT 0.4 mg/dL (0.0-0.4); BILIRUBIN,TOTAL 1.7 mg/dL (0.2-1.3); BLOOD UREA NITROGEN 11 mg/dL (7-20); CALCIUM 10.4 mg/dL (8.4-10.2); CARBON DIOXIDE 26 mmol/L (22-30); CHLORIDE 103 mmol/L (98-107); GLUCOSE 91 mg/dL (75-110); POTASSIUM 4.8 mmol/L (3.6-5.0); TOTAL PROTEIN 6.5 g/dL (6.3-8.2)
[2020-04-16 15:54] LABS: VENOUS BLOOD BASE EXCESS -3.1 mmol/L; VENOUS BLOOD HCO3 22.4 mmol/L (20-32); VENOUS BLOOD PCO2 41.7 mmHg (35-63); VENOUS BLOOD PH 7.35 (7.30-7.42)
--- NOTE | 2020-04-16 16:33 | RADIOLOGY REPORT (SQ) ---
EXAM DESCRIPTION: CHEST SINGLE VIEW IMAGES COMPLETED DATE/TIME: 04/16/2020 4:25 pm REASON FOR STUDY: sob COMPARISON: 05/19/2018. EXAM PARAMETERS: NUMBER OF VIEWS: One view. TECHNIQUE: Single frontal radiographic view of the chest acquired. RADIATION DOSE: NA LIMITATIONS: None. FINDINGS: LUNGS AND PLEURA: No opacities, masses or pneumothorax. No pleural effusion. MEDIASTINUM AND HILAR STRUCTURES: No masses. Contour normal. HEART AND VASCULAR STRUCTURES: Stable cardiac enlargement. Normal vasculature. BONES: No acute findings. HARDWARE: None in the chest. OTHER: No other significant finding. IMPRESSION: STABLE CARDIOMEGALY. NO ACUTE RADIOGRAPHIC FINDING IN THE CHEST. TECHNICAL DOCUMENTATION: JOB ID: [id number] 2010 [employer]- All Rights Reserved Reading location - IP/workstation name: [email or web address]
[2020-04-16] MEDS ORDERED: FUROSEMIDE INJ/PF 40 MG/4 ML SDV IV ONE (17:12)
--- NOTE | 2020-04-16 17:21 | ER Document Report ---
ED General - General Chief Complaint: Shortness Of Breath Stated Complaint: SHORTNESS OF BREATH Time Seen by Provider: 04/16/20 15:47 Primary Care Provider: RADHA DURAN MD [Primary Care Provider] - Follow up as needed Information source: Patient TRAVEL OUTSIDE OF THE [place] IN LAST 30 DAYS: No - HPI Notes: Patient arrives complaining of shortness of breath. She states she has had shortness of breath for "a long time". She tells me it has been more than several months. She states she feels it is most likely due to anxiety because she has been very stressed lately. She states she lives alone and is trying to move from one house to another house and this is very stressful. She denies any cough or cold symptoms. She has had no known COVID exposures. No chest pain. She states that she has never been diagnosed with COPD. She states she has been diagnosed with congestive heart failure and that she is currently on 2.5 L 24 hours a day of oxygen. This is not changed. She also states that she is on Lasix but only takes this when she feels that she has fluid on her legs and feet. Therefore she states that many days she does not take the Lasix. Patient's shortness of breath is apparently worse with her anxiety or exertion. It is better with rest. She states she has trouble sleeping because of her anxiety. The symptoms have been moderate to severe. - Related Data Allergies/Adverse Reactions: No Known Allergies Allergy (Verified 11/28/16 09:43) Past Medical History - General Information source: Patient - Social History Smoking Status: Never Smoker Frequency of alcohol use: None Drug Abuse: None Family History: None, CAD, DM - Past Medical History Cardiac Medical History: Reports: Hx Congestive Heart Failure - Chronic diastolic, Hx DVT, Hx Hypercholesterolemia, Hx Hypertension, Hx Pulmonary Embolism Pulmonary Medical History: Denies: Hx Tuberculosis Endocrine Medical History: Reports: Hx Diabetes Mellitus Type 2 Renal/ Medical History: Denies: Hx Peritoneal Dialysis GI Medical History: Reports: Hx Gastroesophageal Reflux Disease Musculoskeletal Medical History: Reports Hx Arthritis Psychiatric Medical History: Reports: Hx Depression Past Surgical History: Reports: Hx Appendectomy, Hx Cardiac Catheterization - RIGHT, ABLATION, Hx Cholecystectomy, Hx Tonsillectomy - Immunizations Hx Pneumococcal Vaccination: 07/19/12 Review of Systems - Review of Systems Constitutional: denies: Chills, Fever Cardiovascular: denies: Chest pain, Palpitations Respiratory: Short of breath. denies: Cough -: Yes All other systems reviewed and negative Physical Exam - Vital signs Vitals: Temp Resp Pulse Ox 99.1 F 33 H 93 04/16/20 14:43 04/16/20 14:43 04/16/20 14:43 Interpretation: Bradycardic - General General appearance: Appears well, Alert - HEENT Head: Normocephalic, Atraumatic Eyes: Normal Pupils: PERRL - Respiratory Respiratory status: No respiratory distress Chest status: Nontender Breath sounds: Decreased air movement - Bilateral Chest palpation: Normal - Cardiovascular Rhythm: Bradycardia Heart sounds: Normal auscultation Murmur: No - Abdominal Inspection: Normal Distension: No distension Bowel sounds: Normal Tenderness: Nontender Organomegaly: No organomegaly - Back Back: Normal, Nontender - Extremities General upper extremity: Normal inspection, Nontender, Normal color, Normal ROM, Normal temperature General lower extremity: Nontender, Edema - 2+ bilateral, Normal color, Normal temperature. No: Del's sign - Neurological Neuro grossly intact: Yes Cognition: Normal Orientation: AAOx4 [place] Coma Scale Eye Opening: Spontaneous [place] Coma Scale Verbal: Oriented [place] Coma Scale Motor: Obeys Commands [place] Coma Scale Total: 15 Speech: Normal Motor strength normal: LUE, RUE, LLE, RLE Sensory: Normal - Psychological Associated symptoms: Normal affect, Normal mood - Skin Skin Temperature: Warm Skin Moisture: Dry Skin Color: Normal Course - Re-evaluation Re-evalutation: 04/16/20 17:22 Patient presents with shortness of breath. There is no evidence of any type of infectious cause. Patient's presentation also does not seem consistent with pulmonary embolism as she is not tachypneic nor does she have pleuritic chest pain. She has no unilateral leg swelling. Patient does have a history of CHF and her BNP is slightly elevated from her baseline. She does not have any evidence of failure on x-ray. Nevertheless I will give her 1 dose of IV Lasix here and i instructed her to take her Lasix regularly at home as she admits that she does not take it every day. Patient has no ischemic changes on EKG. She has chronic A. fib on EKG which is essentially unchanged from previous. Patient admits to stress and anxiety and this seems like the most likely culprit as patient saturations are 93 to 94% on her 2-1/2 L. - Vital Signs Vital signs: Temp Pulse Resp BP Pulse Ox 99.1 F 21 H 172/84 H 92 04/16/20 14:43 04/16/20 17:02 04/16/20 17:02 04/16/20 17:02 - Laboratory Result Diagrams: 04/16/20 14:40 04/16/20 14:40 Laboratory results interpreted by me: 04/16/20 04/16/20 04/16/20 14:40 14:40 14:40 RDW 14.1 H Sodium 136.1 L Calcium 10.4 H Total Bilirubin 1.7 H NT-Pro-B Natriuret Pep 1700 H - Diagnostic Test Radiology reviewed: Image reviewed, Reports reviewed - EKG Interpretation by Me Rate: Bradycardia - 49 Rhythm: A.Fib [place]/QRS: Left axis deviation When compared to previous EKG there are: No significant change Discharge - Discharge Clinical Impression: Anxiety Dyspnea Qualifiers: Dyspnea type: shortness of breath Qualified Code(s): R06.02 - Shortness of breath; R06.00 - Dyspnea, unspecified; R06.01 - Orthopnea Condition: Stable Disposition: HOME, SELF-CARE Instructions: Congestive Heart Failure ([facility]), Dyspnea, Nonspecific ([facility]) Referrals: RADHA DURAN MD [Primary Care Provider] - Follow up in 3-5 days
[2020-04-16 18:46] VITALS: BP 159/94
--- NOTE | 2020-04-16 19:02 | EKG REPORT ---
SEVERITY:- ABNORMAL ECG - ATRIAL FIBRILLATION LEFT AXIS DEVIATION : Confirmed by: Abhijit Arroyo MD 16-Apr-2020 19:01:44
== END 2020-04-16 18:46 | disposition home or self-care (01) ==
LOC: ER 14:24
DX: F41.9 Anxiety disorder, unspecified (principal); R06.01 Orthopnea; R06.02 Shortness of breath; I48.91 Unspecified atrial fibrillation; I11.0 Hypertensive heart disease with heart failure; I50.9 Heart failure, unspecified; E78.00 Pure hypercholesterolemia, unspecified; E11.9 Type 2 diabetes mellitus without complications; Z99.81 Dependence on supplemental oxygen
CPT/HCPCS: 93005; 99285; 96374; 36415; 87040; 83605; 85025; 87077; 80053; 82803; 87150 ×26; 83880; 71045; 93010; J1940